=== PATIENT | female | born 1935 | race Hispanic/Latino ===

== ENCOUNTER 2019-05-23 08:48 | Emergency (ER) | payer OTHER ==
[2019-05-23] MEDS ORDERED: FOLIC ACID 5 MG/ML VIAL ONE (09:23)
[2019-05-23] MEDS ORDERED: NA CHLORIDE 0.9% 1,000 ML ONE (09:23)
--- NOTE | 2019-05-23 09:32 | RAD REPORT ---
EXAM DESCRIPTION: CT - Ct Stroke Brain Wo Cont - 05/23/2019 9:19 am CLINICAL HISTORY: Slurred speech COMPARISON: 2013 TECHNIQUE: Computed axial tomography of the head was obtained. All CT scans are performed using dose optimization technique as appropriate and may include automated exposure control or mA/KV adjustment according to patient size. FINDINGS: An intracranial bleed is not seen . The ventricles are normal in caliber. No extra-axial fluid collection is noted. Fluid within the sinuses/ mastoids is not seen. IMPRESSION: No acute intracranial abnormality is seen. If patient's symptoms persist MRI of the bra in would be recommended. Gordon Page of the emergency room was notified at 9:26 a.m. May 23, 2019
[2019-05-23 09:59] LABS: Absolute Lymphocytes (CBC) 2.1 K/uL (0.7-4.9); Basophils % 0.8 % (0-1.3); Hematocrit 39.5 % (36.0-45.0); Lymphocytes % 33.9 % (15.3-44.8); MPV 10.3 fL (7.6-11.3); RBC Red Blood Cell Count 4.46 M/uL (3.86-4.86)
[2019-05-23 10:06] LABS: Protime INR 2.83
[2019-05-23 10:20] LABS: ALT/SGPT 26 U/L (12-78); AST/SGOT 23 U/L (15-37); Albumin 3.3 g/dL (3.4-5.0); Alkaline Phosphatase 143 U/L (45-117); BUN Blood Urea Nitrogen 17 mg/dL (7-18); Bicarbonate 27 mmol/L (21-32); Bilirubin Direct < 0.1 mg/dL (0-0.2); Bilirubin Total 0.3 mg/dL (0.2-1.0); Glucose Level 259 mg/dL (74-106); Magnesium 2.3 mg/dL (1.8-2.4); NT PRO-BNP 86 pg/mL (<450); Potassium 4.4 mmol/L (3.5-5.1); Protein, Total 7.2 g/dL (6.4-8.2); Sodium Level 138 mmol/L (136-145); Troponin (Emerg Dept Use Only) < 0.02 ng/mL (0.0-0.045)
--- NOTE | 2019-05-23 10:30 | RAD REPORT ---
EXAM DESCRIPTION: MRI - Brain Wo Cont - 05/23/2019 10:13 am CLINICAL HISTORY: TIA Headache, drowsiness, CVA symptomology COMPARISON: Ct Stroke Brain Wo Cont dated 05/23/2019 TECHNIQUE: Multi-sequence, multiplanar MR imaging of the brain was performed without contrast. FINDINGS: No intracranial hemorrhage, hydrocephalus or extra-axial fluid collections.Moderate genera lized brain atrophy is seen with periventricular and deep white matter chronic microvascular ischemic changes evident. No edema or shift of midline structures. No findings to suspect brain mass. DWI is negative for acute CVA. Midline structures are normally formed. Mastoid air cells and paranasal sinuses are clear. IMPRESSION: Negative for acute CVA or other acute intracranial process.
--- NOTE | 2019-05-23 10:35 | RAD REPORT ---
EXAM DESCRIPTION: RAD - Chest Single View - 05/23/2019 10:28 am CLINICAL HISTORY: COUGH Chest pain. COMPARISON: CHEST SINGLE VIEW dated 08/31/2013; CHEST SINGLE VIEW dated 08/30/2013; CHEST SINGLE VIEW dated 01/05/2013; CHEST SINGLE VIEW dated 01/04/2013 FINDINGS: Portable technique limits examination quality. Mild interstitial pulmonary edema seen. The heart is upper limit normal in size with a tortuous thora cic aorta. No displaced fractures.Mild degenerate changes are present both shoulders. IMPRESSION: Mild CHF.
--- NOTE | 2019-05-23 10:40 | ER ---
Nurse's Notes [facility] Name: Kate Cruz Age: 83 yrs Sex: Female : 1935 Arrival Date: 05/23/2019 Time: 08:51 Bed 4 Private MD: Ilir Dumont T Diagnosis: Weakness;Type 1 diabetes mellitus;Alzheimer's disease Presentation: 05/23 09:07 Presenting complaint: [facility] staff member states that 1 hour ago while eating ss breakfast they noticed that patient was eating with her L hand rather than her right hand, leaning to her side and her speech seemed more slurred than usual. VAN scoring negative. Transition of care: patient was not received from another setting of care. Onset of symptoms was May 22, 2019 at 21:00. Risk Assessment: Do you want to hurt yourself or someone else? Patient reports no desire to harm self or others. Initial Sepsis Screen: Does the patient meet any 2 criteria? No. Patient's initial sepsis screen is negative. Does the patient have a suspected source of infection? No. Patient's initial sepsis screen is negative. Care prior to arrival: None. 09:07 Method Of Arrival: Wheelchair ss 09:07 Acuity: CHAZ 2 ss Triage Assessment: 09:12 General: Appears in no apparent distress. Behavior is calm, cooperative. Pain: Denies hb pain. EENT: No signs and/or symptoms were reported regarding the EENT system. Neuro: Level of Consciousness is awake, alert, obeys commands, Oriented to person, place, situation. Cardiovascular: Heart tones S1 S2 present Capillary refill < 3 seconds Patient's skin is warm and dry. Respiratory: Airway is patent Respiratory effort is even, unlabored, Respiratory pattern is regular, symmetrical, Breath sounds are clear bilaterally. GI: No signs and/or symptoms were reported involving the gastrointestinal system. : No signs and/or symptoms were reported regarding the genitourinary system. Derm: Skin is pink, warm \T\ dry. Musculoskeletal: No signs and/or symptoms reported regarding the musculoskeletal system. Historical: - Allergies: 09:13 No Known Allergies; ss - PMHx: 09:13 Diabetes - IDDM; dysphagia; Alzheimers; ss - Immunization history:: Adult Immunizations up to date. - Coronavirus screen:: The patient has NOT traveled to [place] in the past 14 days. Proceed with normal triage process as indicated. - Social history:: Smoking status: Patient denies any tobacco usage or history of. - Family history:: not pertinent. - Ebola Screening: : Patient denies exposure to infectious person Patient denies travel to an Ebola-affected area in the 21 days before illness onset. Screenin:22 Abuse screen: Denies threats or abuse. Denies injuries from another. Nutritional hb screening: No deficits noted. Tuberculosis screening: No symptoms or risk factors identified. Fall Risk Total Banuelos Fall Scale indicates Low Risk Score (25-44 pts). Fall prevention measures have been instituted. Side Rails Up X 2 Frequent Obs/Assesments occuring Family Present and informed to notify staff if they need to leave bedside As available Patient and Family Educated on Fall Prevention Program and strategies. 10:22 Patient has been NPO before screening. The patient is alert, able to follow commands. hb The patient does not exhibit slurred or garbled speech The patient is not exhibiting difficulty speaking. The patient does not exhibit difficulty understanding words. The patient is able to swallow own secretions with no drooling or need for suction. Patient tolerated one teaspoon of water. No drooling, immediate coughing, gurgling, or clearing of the throat was noted. The patient tolerated 90mL of water. No drooling, immediate coughing, gurgling, or clearing of the throat was noted. The patient passed the bedside swallow screening. Oral medications may be given as ordered. Contact Physician for further diet orders. Assessment: 09:13 General: See triage assessment . hb 09:26 Reassessment: Pt to CT. hb 09:52 Reassessment: Pt to MRI via wheelchair. hb 10:26 Reassessment: Patient appears in no apparent distress at this time. No changes from hb previously documented assessment. Patient and/or family updated on plan of care and expected duration. Pain level reassessed. 10:49 Reassessment: Pt agitated, punching, kicking, and pinching staff, attempting to pull hb out IV, unable to redirect or calm. Dr. Guerra notified, Ativan 1mg IVP administered as ordered. 11:30 Reassessment: Patient appears in no apparent distress at this time. Pt calm, denies hb pain. Family at bedside. 12:43 Reassessment: Patient appears in no apparent distress at this time. No changes from tw2 previously documented assessment. Patient and/or family updated on plan of care and expected duration. Pain level reassessed. Vital Signs: 09:00 BP 138 / 56; Pulse 84; Resp 15; Temp 98.1; Pulse Ox 99% ; Pain 0/10; hb 10:10 BP 148 / 68; Pulse 88; Resp 17; Pulse Ox 99% on R/A; Pain 0/10; hb 11:00 BP 138 / 70; Pulse 81; Resp 14; Pulse Ox 99% on R/A; hb 12:43 BP 122 / 82; Pulse 81; Resp 17; Pulse Ox 99% on R/A; tw2 NIH Stroke Scale Scores: 10:30 NIHSS Score: 0 yenny ED Course: 08:51 Patient arrived in ED. ag5 08:52 Ilir Dumont MD is Private Physician. ag5 09:08 Gordon Guerra MD is Attending Physician. yenny 09:11 EKG done, by polysomnographic technician. reviewed by Gordon Guerra MD. at1 09:12 Triage completed. ss 09:13 Arm band placed on right wrist. ss 09:16 Jacqueline Huizar, RN is Primary Nurse. hb 09:41 Missed attempt(s): 22 gauge in right antecubital area. mh5 09:41 Patient has correct armband on for positive identification. Placed in gown. Bed in low mh5 position. Call light in reach. Side rails up X2. Adult w/ patient. Warm blanket given. office correspondent on. Pulse ox on. NIBP on. 09:45 Missed attempt(s): 22 gauge in right hand. Bleeding controlled, band aid applied, hb catheter tip intact. 09:50 Inserted saline lock: 22 gauge in left antecubital area, using aseptic technique. Blood hb collected. 10:22 X-ray(s) taken. sv 10:37 Ilir Dumont MD is Referral Physician. yenny 10:37 Stevie Boland MD is Referral Physician. yenny 10:49 Urine Culture Sent. hb 11:01 Urine Dipstick--Ancillary (enter results) Sent. hb 11:05 Urine collected: straight cath specimen, clear. mh5 11:48 US Carotid Artery Bilateral In Process Unspecified. EDMS 12:42 No provider procedures requiring assistance completed. IV discontinued, intact, tw2 bleeding controlled, No redness/swelling at site. Pressure dressing applied. Administered Medications: 10:10 Drug: NS 0.9% 1000 ml Route: IV; Rate: 1 bolus; Site: left antecubital; hb 10:10 Drug: foLIC Acid 1 mg Route: IVPB; Site: left antecubital; hb 10:48 Drug: Ativan 1 mg Route: IVP; Site: left antecubital; hb 11:25 Follow up: Response: No adverse reaction; Anxiety decreased hb Outcome: 10:38 Discharge ordered by MD. yenny 12:42 Discharged to home ambulatory, via wheelchair, with family. tw2 12:42 Condition: stable 12:42 Discharge instructions given to patient, family, Instructed on discharge instructions, follow up and referral plans. medication usage, Demonstrated understanding of instructions, follow-up care, medications, Prescriptions given X 1. 12:44 Patient left the ED. tw2 NIH Stroke Scale - NIH Stroke Score Date: 05/23/2019 Time: 10:30 Total Score = 0 1a. Level of Consciousness (LOC) - 0(Alert) 1b. Level of Consciousness (LOC) (Year \T\ Age) - 0(Both) 1c. LOC Commands (Open \T\ Closes Eyes/Plant Protection Officer) - 0(Both) 2. Best Gaze (Lateral Gaze Paresis) - 0(Normal) 3. Visual Field Loss - 0(No visual loss) 4. Facial Palsy - 0(Normal) 5a. Left Arm: Motor (10-second hold) - 0(No drift) 5b. Right Arm: Motor (10-second hold) - 0(No drift) 6a. Left Leg: Motor (5-second hold - always test supine) - 0(No drift) 6b. Right Leg: Motor (5-second hold - always test supine) - 0(No drift) 7. Limb Ataxia (finger/nose \T\ heel/castro - test with eyes open) - 0(Absent) 8. Sensory Loss (pinprick arms/legs/face) - 0(Normal) 9. Best Language: Aphasia (description/naming/reading) - 0(No aphasia) 10. Dysarthria (speech clarity - read or repeat words) - 0(Normal) 11. Extinction and Inattention (visual/tactile/auditory/spatial/personal) - 0(No abnormality) Initials: yenny Signatures: Dispatcher [employer] EDMS Maria Ines Black, RN RN Gordon Luna MD MD cha Smirch, Shelby, RN RN ss Basilia Miranda, photo mask inspector EKG Tat1 Jacqueline Huizar RN RN Lita Jean RN RN tw2 Karey Phillips 5 Sarah Edmondson ag5 Corrections: (The following items were deleted from the chart) 10: 10:25 Urine Culture+BA.LAB.BRZ drawn and sent. EDMS 09:00 BP 138 / 56; Pulse 84bpm; Resp 15bpm; Pulse Ox 99%; sv hb
--- NOTE | 2019-05-23 10:40 | EDPHYS ---
Physician Documentation [facility] Name: Kate Cruz Age: 83 yrs Sex: Female : 1935 Arrival Date: 05/23/2019 Time: 08:51 Bed 4 Private MD: lIir Dumont T ED Physician Gordon Guerra HPI: 05/23 10:30 This 83 yrs old Female presents to ER via Wheelchair with complaints of Right [facility] Side Numbness. 10:30 The patient's problem is reported as paresthesias, weakness, in the right upper [facility] extremity. Onset: The symptoms/episode began/occurred just prior to arrival. Duration: This was a single incident. Context: the episode(s) was witnessed, by the group home staff. The symptoms are alleviated by nothing. The symptoms are aggravated by nothing. eating with left hand, speech slurred. The patient presents with unk, patient denies all complaints. Associated signs and symptoms: The patient has no apparent associated signs or symptoms. Historical: - Allergies: 09:13 No Known Allergies; ss - PMHx: 09:13 Diabetes - IDDM; dysphagia; Alzheimers; ss - Immunization history:: Adult Immunizations up to date. - Coronavirus screen:: The patient has NOT traveled to [place] in the past 14 days. Proceed with normal triage process as indicated. - Social history:: Smoking status: Patient denies any tobacco usage or history of. - Family history:: not pertinent. - Ebola Screening: : Patient denies exposure to infectious person Patient denies travel to an Ebola-affected area in the 21 days before illness onset. ROS: 10:30 Constitutional: Negative for fever, chills, and weight loss, Eyes: Negative for injury, yenny pain, redness, and discharge, ENT: Negative for injury, pain, and discharge, Neck: Negative for injury, pain, and swelling, Cardiovascular: Negative for chest pain, palpitations, and edema, Respiratory: Negative for shortness of breath, cough, wheezing, and pleuritic chest pain, Abdomen/GI: Negative for abdominal pain, nausea, vomiting, diarrhea, and constipation, Back: Negative for injury and pain, : Negative for injury, bleeding, discharge, and swelling, MS/Extremity: Negative for injury and deformity, Skin: Negative for injury, rash, and discoloration, Psych: Negative for depression, anxiety, suicide ideation, homicidal ideation, and hallucinations, Allergy/Immunology: Negative for hives, rash, and allergies, Endocrine: Negative for neck swelling, polydipsia, polyuria, polyphagia, and marked weight changes. 10:30 Neuro: Positive for numbness, tingling, of the right arm. Exam: 10:30 Radiologist reports: see report, nad, no blood yenny 10:30 Constitutional: This is a well developed, well nourished patient who is awake, alert, and in no acute distress. Head/Face: Normocephalic, atraumatic. Eyes: Pupils equal round and reactive to light, extra-ocular motions intact. Lids and lashes normal. Conjunctiva and sclera are non-icteric and not injected. Cornea within normal limits. Periorbital areas with no swelling, redness, or edema. ENT: Nares patent. No nasal discharge, no septal abnormalities noted. Tympanic membranes are normal and external auditory canals are clear. Oropharynx with no redness, swelling, or masses, exudates, or evidence of obstruction, uvula midline. Mucous membranes moist. Neck: Trachea midline, no thyromegaly or masses palpated, and no cervical lymphadenopathy. Supple, full range of motion without nuchal rigidity, or vertebral point tenderness. No Meningismus. Chest/axilla: Normal chest wall appearance and motion. Nontender with no deformity. No lesions are appreciated. Cardiovascular: Regular rate and rhythm with a normal S1 and S2. No gallops, murmurs, or rubs. Normal PMI, no JVD. No pulse deficits. Respiratory: Lungs have equal breath sounds bilaterally, clear to auscultation and percussion. No rales, rhonchi or wheezes noted. No increased work of breathing, no retractions or nasal flaring. Abdomen/GI: Soft, non-tender, with normal bowel sounds. No distension or tympany. No guarding or rebound. No evidence of tenderness throughout. Back: No spinal tenderness. No costovertebral tenderness. Full range of motion. Female : Normal external genitalia. Skin: Warm, dry with normal turgor. Normal color with no rashes, no lesions, and no evidence of cellulitis. MS/ Extremity: Pulses equal, no cyanosis. Neurovascular intact. Full, normal range of motion. Neuro: Awake and alert, GCS 15, oriented to person, place, time, and situation. Cranial nerves II-XII grossly intact. Motor strength 5/5 in all extremities. Sensory grossly intact. Cerebellar exam normal. Normal gait. Psych: Awake, alert, with orientation to person, place and time. Behavior, mood, and affect are within normal limits. Vital Signs: 09:00 BP 138 / 56; Pulse 84; Resp 15; Temp 98.1; Pulse Ox 99% ; Pain 0/10; hb 10:10 BP 148 / 68; Pulse 88; Resp 17; Pulse Ox 99% on R/A; Pain 0/10; hb 11:00 BP 138 / 70; Pulse 81; Resp 14; Pulse Ox 99% on R/A; hb 12:43 BP 122 / 82; Pulse 81; Resp 17; Pulse Ox 99% on R/A; tw2 NIH Stroke Scale Scores: 10:30 NIHSS Score: 0 yenny MDM: 09:09 Patient medically screened. [facility] 10:34 Data reviewed: vital signs, nurses notes, lab test result(s), EKG, radiologic studies, [facility] CT scan, MRI, plain films. 05/23 09:09 Order name: Magnesium [facility] 05/23 09:09 Order name: Basic Metabolic Panel [facility] 05/23 09:09 Order name: CBC with Diff [facility] 05/23 09:09 Order name: Protime (+inr) [facility] 05/23 09:09 Order name: Ptt, Activated [facility] 05/23 09:09 Order name: LFT's [facility] 05/23 09:09 Order name: NT PRO-BNP [facility] 05/23 09:09 Order name: Troponin (emerg Dept Use Only) [facility] 05/23 09:11 Order name: Urine Culture [facility] 05/23 10:01 Order name: CBC with Automated Diff; Complete Time: 10:17 EDNM 05/23 10:08 Order name: Protime (+INR); Complete Time: 10:17 EDNM 05/23 10:08 Order name: PTT, Activated Partial Thromb; Complete Time: 10:17 EDNM 05/23 10:22 Order name: Basic Metabolic Panel; Complete Time: 10:29 EDNM 05/23 10:22 Order name: Liver (Hepatic) Function; Complete Time: 10:29 EDNM 05/23 09:07 Order name: CT Stroke Brain w/o Contrast 05/23 09:09 Order name: Stroke CXR 1 View [facility] 05/23 09:10 Order name: MRI Stroke Protocol [facility] 05/23 10:22 Order name: Troponin (Emerg Dept Use Only); Complete Time: 10:29 EDMS 05/23 10:22 Order name: NT PRO-BNP; Complete Time: 10:29 EDNM 05/23 10:22 Order name: Magnesium; Complete Time: 10:29 EDNM 05/23 10:36 Order name: US Carotid Artery Bilateral [facility] 05/23 10:48 Order name: Ct Stroke Brain Wo Cont; Complete Time: 11:41 EDNM 05/23 10:50 Order name: Urine Dipstick--Ancillary (enter results) 05/23 10:54 Order name: Urine Dipstick-Ancillary; Complete Time: 11:41 EDNM 05/23 11:26 Order name: Brain Wo Cont; Complete Time: 11:41 EDNM 05/23 11:39 Order name: RAD; Complete Time: 11:41 EDNM 05/23 09:09 Order name: EKG; Complete Time: 09:34 [facility] 05/23 09:09 Order name: Accucheck; Complete Time: 11:01 [facility] 05/23 09:09 Order name: Cardiac monitoring; Complete Time: 11:02 [facility] 05/23 09:09 Order name: EKG - Nurse/Tech; Complete Time: 11:01 [facility] 05/23 09:09 Order name: IV Saline Lock; Complete Time: 11:02 [facility] 05/23 09:09 Order name: Labs collected and sent; Complete Time: 11:02 [facility] 05/23 09:09 Order name: NPO; Complete Time: 11:02 [facility] 05/23 09:09 Order name: O2 Per Protocol; Complete Time: 11:02 [facility] 05/23 09:09 Order name: O2 Sat Monitoring; Complete Time: 11:02 [facility] 05/23 09:09 Order name: Stroke Swallow Screen; Complete Time: 11:02 [facility] 05/23 09:11 Order name: Urine Dipstick-Ancillary (obtain specimen); Complete Time: 10:48 [facility] Administered Medications: 10:10 Drug: NS 0.9% 1000 ml Route: IV; Rate: 1 bolus; Site: left antecubital; hb 10:10 Drug: foLIC Acid 1 mg Route: IVPB; Site: left antecubital; hb 10:48 Drug: Ativan 1 mg Route: IVP; Site: left antecubital; hb 11:25 Follow up: Response: No adverse reaction; Anxiety decreased hb Disposition: 05/23/19 10:38 Discharged to Home. Impression: Weakness, Type 1 diabetes mellitus, Alzheimer's disease. - Condition is Stable. - Discharge Instructions: Type 1 Diabetes Mellitus, Diagnosis, Adult, Weakness, Weakness, [id number]. - Prescriptions for Folic Acid 1 mg Oral Tablet - take 1 tablet by ORAL route once daily; 30 tablet. - Medication Reconciliation Form, Thank You Letter, Antibiotic Education, Prescription Opioid Use form. - Follow up: Ilir Dumont MD; When: 2 - 3 days; Reason: Recheck today's complaints, Continuance of care, Re-evaluation by your physician. Follow up: Stevie Boland MD; When: 2 - 3 days; Reason: Recheck today's complaints, Re-evaluation by your physician. - Problem is new. - Symptoms have improved. NIH Stroke Scale - NIH Stroke Score Date: 05/23/2019 Time: 10:30 Total Score = 0 1a. Level of Consciousness (LOC) - 0(Alert) 1b. Level of Consciousness (LOC) (Year \T\ Age) - 0(Both) 1c. LOC Commands (Open \T\ Closes Eyes/Operations Support Representative) - 0(Both) 2. Best Gaze (Lateral Gaze Paresis) - 0(Normal) 3. Visual Field Loss - 0(No visual loss) 4. Facial Palsy - 0(Normal) 5a. Left Arm: Motor (10-second hold) - 0(No drift) 5b. Right Arm: Motor (10-second hold) - 0(No drift) 6a. Left Leg: Motor (5-second hold - always test supine) - 0(No drift) 6b. Right Leg: Motor (5-second hold - always test supine) - 0(No drift) 7. Limb Ataxia (finger/nose \T\ heel/castro - test with eyes open) - 0(Absent) 8. Sensory Loss (pinprick arms/legs/face) - 0(Normal) 9. Best Language: Aphasia (description/naming/reading) - 0(No aphasia) 10. Dysarthria (speech clarity - read or repeat words) - 0(Normal) 11. Extinction and Inattention (visual/tactile/auditory/spatial/personal) - 0(No abnormality) Initials: yenny Signatures: Dispatcher [employer] [facility] Gordon Guerra MD MD cha Smirch, Shelby, RN RN Jacqueline Huizar, HALINA RN Lita Poon RN RN tw2 Corrections: (The following items were deleted from the chart) 10:27 09:35 Urine Culture+BA.LAB.BRZ ordered. [facility] 12:44 10:38 05/23/2019 10:38 Discharged to Home. Impression: Weakness; Type 1 tw2 diabetes mellitus; Alzheimer's disease. Condition is Stable. Forms are Medication Reconciliation Form, Thank You Letter, Antibiotic Education, Prescription Opioid Use. Follow up: Ilir Dumont; When: 2 - 3 days; Reason: Recheck today's complaints, Continuance of care, Re-evaluation by your physician. Follow up: Stevie Boland; When: 2 - 3 days; Reason: Recheck today's complaints, Re-evaluation by your physician. Problem is new. Symptoms have improved. yenny
[2019-05-23] MEDS ORDERED: LORazepam 2 MG/ML VIAL ONE (10:48)
[2019-05-23 10:53] LABS: Urine Blood NEGATIVE (NEG); Urine Glucose 2+ (NEG); Urine Protein TRACE (NEG); Urine Specific Gravity 1.015 (1.005-1.030); Urine pH 5.5 (5.0-7.0)
--- NOTE | 2019-05-23 11:23 | EKG ---
Test Date: 2019-05-23 Test Time: 09:05:18 [employer] Player: VERONA MEASUREMENT RESULTS: Intervals: Rate: 79 RI: 146 QRSD: 80 QT: 402 QTc: 460 [place]: P: 34 RI: 146 QRS: -18 T: 76 INTERPRETIVE STATEMENTS: Normal sinus rhythm Low voltage QRS Borderline ECG Compared to ECG 08/30/2013 13:18:06 T-wave abnormality no longer present Electronically Signed On 05-23-19 11:22:35 [employer] CONSULTANT by Wilson Reilly
--- NOTE | 2019-05-23 11:57 | RAD REPORT ---
EXAM DESCRIPTION: - CP - 05/23/2019 11:43 am CLINICAL HISTORY: DIZZINESS Headache, drowsiness, CVA symptomology. COMPARISON: CT HEAD CSPINE MPR WO CONTRAST dated 10/04/2013 TECHNIQUE: Real-time sonographic evaluation of both carotid systems was performed. Doppler interroga tion was performed with waveform tracing bilaterally. FINDINGS: Normal high resistance waveforms are noted in both external carotid arteries. The common c arotid arteries and internal carotid arteries show normal low resistance waveforms. Bilateral intimal thickening with mild mixed plaque at the level of the right carotid bulb. Moderate hard plaque with luminal narrowing estimated less than 50% based on NASCET criteria seen left carotid bulb. . Peak systolic and end diastolic velocity values and the ICA/CCA ratios are in the non-hemody namically significant range. Antegrade flow seen in both vertebral arteries. IMPRESSION: Mild to moderate carotid bulb plaquing is seen, slightly worse on the left. No evidence of a hemodynamically significant stenosis.
[2019-05-23 12:59] VITALS: TEMP 98.1; O2SAT 99
[2019-05-23 13:03] VITALS: BP 122/82
== END 2019-05-23 12:44 | disposition home or self-care (01) ==
LOC: ER 08:48
DX: R53.1 Weakness (principal); E10.9 Type 1 diabetes mellitus without complications; G30.9 Alzheimer's disease, unspecified
CPT/HCPCS: 93005; 87088; 85025; 87086; 80048; 36415; 83735; 85610; 80076; 85730; 81003; 84484; 83880; 70450; 71045; 93880; 70551; 96375; 96374; 99285; J7030

== ENCOUNTER 2020-04-16 23:42 | Emergency (ER) | payer OTHER ==
[2020-04-17] MEDS ORDERED: D50W 50 ML IV ONE (00:15)
[2020-04-17 00:47] LABS: Absolute Lymphocytes (CBC) 1.2 K/uL (0.7-4.9); Basophils % 0.3 % (0-1.3); Hematocrit 42.2 % (36.0-45.0); Lymphocytes % 22.2 % (15.3-44.8); MPV 9.7 fL (7.6-11.3); RBC Red Blood Cell Count 4.89 M/uL (3.86-4.86)
[2020-04-17 00:53] LABS: Protime INR 1.26
[2020-04-17 01:00] LABS: ALT/SGPT 45 U/L (12-78); AST/SGOT 63 U/L (15-37); Alkaline Phosphatase 128 U/L (45-117); Amylase 61 U/L (25-115); BUN Blood Urea Nitrogen 22 mg/dL (7-18); Bicarbonate 25 mmol/L (21-32); Bilirubin Direct 0.2 mg/dL (0-0.2); Bilirubin Total 0.7 mg/dL (0.2-1.0); CKMB Creatine Kinase MB 1.6 ng/mL (0.3-3.6); Creatine Phosphokinase 130 U/L (26-192); Glucose Level 61 mg/dL (74-106); Lipase 178 U/L (73-393); Potassium 4.2 mmol/L (3.5-5.1); Protein, Total 8.3 g/dL (6.4-8.2); Sodium Level 144 mmol/L (136-145); Troponin (Emerg Dept Use Only) < 0.02 ng/mL (0.0-0.045)
[2020-04-17 01:40] LABS: Blood Morphology Comment NOT SEEN (NOT SEEN); Platelet Estimate ADEQ
[2020-04-17 01:54] LABS: Urine Blood 1+ (NEG); Urine Glucose TRACE (NEG); Urine Protein 2+ (NEG); Urine pH 5.5 (5.0-7.0)
[2020-04-17] MEDS ORDERED: NA CHLORIDE 0.9% 1,000 ML ONE (01:57)
[2020-04-17 02:06] LABS: Urine Bacteria LOADED /HPF (<20); Urine RBC NONE SEEN /HPF (NONE SEEN); Urine Urothelial Cells <5 /HPF (NONE SEEN)
--- NOTE | 2020-04-17 05:20 | EDPHYS ---
Physician Documentation [facility] Name: Kate Cruz Age: 84 yrs Sex: Female : 1935 Arrival Date: 04/16/2020 Time: 23:44 Bed 3 Private MD: Ilir Dumont T ED Physician Danny Marcelo HPI: 04/17 01:19 This 84 yrs old Female presents to ER via EMS with complaints of Low Blood pkl Sugar, Altered Mental Status. 01:19 The patient presents with decreased mental status. Onset: The symptoms/episode pkl began/occurred just prior to arrival. Possible causes: low blood sugar, refused to eat all day. Historical: - Allergies: 04/16 23:50 No Known Allergies; rr5 - PMHx: 23:50 Alzheimers; Diabetes - IDDM; DYSPHAGIA; Dementia; rr5 - Immunization history:: Adult Immunizations unknown. - Social history:: Smoking status: unknown. ROS: 04/17 01:19 Eyes: Negative for injury, pain, redness, and discharge, ENT: Negative for injury, pkl pain, and discharge, Neck: Negative for injury, pain, and swelling, Cardiovascular: Negative for chest pain, palpitations, and edema, Respiratory: Negative for shortness of breath, cough, wheezing, and pleuritic chest pain, Abdomen/GI: Negative for abdominal pain, nausea, vomiting, diarrhea, and constipation, Back: Negative for injury and pain, : Negative for injury, bleeding, discharge, and swelling, MS/Extremity: Negative for injury and deformity, Skin: Negative for injury, rash, and discoloration. Neuro: Positive for altered mental status. Exam: 01:19 Head/Face: Normocephalic, atraumatic. Eyes: Pupils equal round and reactive to light, pkl extra-ocular motions intact. Lids and lashes normal. Conjunctiva and sclera are non-icteric and not injected. Cornea within normal limits. Periorbital areas with no swelling, redness, or edema. ENT: Nares patent. No nasal discharge, no septal abnormalities noted. Tympanic membranes are normal and external auditory canals are clear. Oropharynx with no redness, swelling, or masses, exudates, or evidence of obstruction, uvula midline. Mucous membranes moist. Neck: Trachea midline, no thyromegaly or masses palpated, and no cervical lymphadenopathy. Supple, full range of motion without nuchal rigidity, or vertebral point tenderness. No Meningismus. Chest/axilla: Normal chest wall appearance and motion. Nontender with no deformity. No lesions are appreciated. Cardiovascular: Regular rate and rhythm with a normal S1 and S2. No gallops, murmurs, or rubs. Normal PMI, no JVD. No pulse deficits. Respiratory: Lungs have equal breath sounds bilaterally, clear to auscultation and percussion. No rales, rhonchi or wheezes noted. No increased work of breathing, no retractions or nasal flaring. Abdomen/GI: Soft, non-tender, with normal bowel sounds. No distension or tympany. No guarding or rebound. No evidence of tenderness throughout. Back: No spinal tenderness. No costovertebral tenderness. Full range of motion. Skin: Warm, dry with normal turgor. Normal color with no rashes, no lesions, and no evidence of cellulitis. MS/ Extremity: Pulses equal, no cyanosis. Neurovascular intact. Full, normal range of motion. Neuro: Awake and alert, GCS 15, oriented to person, place, time, and situation. Cranial nerves II-XII grossly intact. Motor strength 5/5 in all extremities. Sensory grossly intact. Cerebellar exam normal. Normal gait. Vital Signs: 04/16 23:50 BP 104 / 57; Pulse 71; Resp 16; Temp 97.7; Pulse Ox 95% ; rr5 04/17 00:35 Weight 55 kg; rr5 01:00 BP 115 / 62; Pulse 62; Resp 15; Pulse Ox 98% ; rr5 01:58 BP 110 / 62; Pulse 70; Resp 19; Pulse Ox 99% ; rr5 04:38 BP 102 / 66; Pulse 70; Resp 17; Pulse Ox 100% on R/A; sg 05:30 BP 110 / 70; Pulse 79; Resp 16; Pulse Ox 99% ; rr5 06:29 BP 113 / 65; Pulse 70; Resp 15; Pulse Ox 98% ; rr5 MDM: 00:06 Patient medically screened. pkl 05:16 Data reviewed: vital signs, nurses notes, lab test result(s), EKG. ED course: Patient pkl doing better. Blood sugar stabilized.. 04/17 00:00 Order name: Glucose, Ancillary Testing; Complete Time: 01:18 EDMS 04/17 00:15 Order name: Amylase, Serum; Complete Time: 01:18 rr5 04/17 00:15 Order name: Basic Metabolic Panel; Complete Time: :18 rr5 04/17 00:15 Order name: Blood Culture Adult (2) rr5 04/17 00:15 Order name: CBC with Diff; Complete Time: 05:13 rr5 04/17 00:15 Order name: Ckmb; Complete Time: :18 rr5 04/17 00:15 Order name: CPK; Complete Time: :18 rr5 04/17 00:15 Order name: Lactate; Complete Time: :18 rr5 04/17 00:15 Order name: LFT's; Complete Time: :18 rr5 04/17 00:15 Order name: Lipase; Complete Time: :18 rr5 04/17 00:15 Order name: Procalcitonin; Complete Time: 05:13 rr5 04/17 00:15 Order name: Protime (+inr); Complete Time: :18 rr5 04/17 00:15 Order name: Ptt, Activated; Complete Time: :18 rr5 04/17 00:15 Order name: Troponin (emerg Dept Use Only); Complete Time: :18 rr5 04/17 00:15 Order name: Urine Microscopic Only; Complete Time: 05:13 rr5 04/17 00:15 Order name: Chest Single View XRAY; Complete Time: 20:03 rr5 04/17 00:35 Order name: CT Head Brain wo Cont; Complete Time: 20:03 rr5 04/17 00:55 Order name: Manual Differential; Complete Time: 05:13 EDMS 04/17 01:28 Order name: Glucose, Ancillary Testing; Complete Time: 05:13 EDMS 04/17 01:45 Order name: Urine Dipstick--Ancillary (enter results); Complete Time: 05:13 mw2 04/17 02:08 Order name: Urine Culture EDMS 04/17 03:57 Order name: Glucose, Ancillary Testing; Complete Time: 05:13 EDMS 04/17 05:42 Order name: Glucose, Ancillary Testing; Complete Time: 20:03 EDMS 04/17 06:38 Order name: Glucose, Ancillary Testing; Complete Time: 20:03 EDMS 04/17 00:15 Order name: Accucheck; Complete Time: 00:36 rr5 04/17 00:15 Order name: Cardiac monitoring; Complete Time: 00:36 rr5 04/17 00:15 Order name: EKG - Nurse/Tech; Complete Time: 00:51 rr5 04/17 00:15 Order name: IV Saline Lock - Large Bore; Complete Time: 00:36 rr5 04/17 00:15 Order name: Labs collected and sent; Complete Time: 00:36 rr5 04/17 00:15 Order name: O2 Per Protocol; Complete Time: 00:36 rr5 04/17 00:15 Order name: O2 Sat Monitoring; Complete Time: 00:36 rr5 04/17 00:15 Order name: Urine Dipstick-Ancillary (obtain specimen); Complete Time: 02:00 rr5 04/17 01:25 Order name: Accucheck: q hourly; Complete Time: 01:59 pkl 04/17 01:59 Order name: Straight Cath - Urine; Complete Time: 01:59 rr5 04/17 08:14 Order name: EKG Electrocardiogram EDMS Administered Medications: Discontinued: NS 0.9% 1000 ml IV at 125 ml/hr continuous 00:10 Drug: D50W 25 ml Route: IVP; Site: right antecubital; rr5 01:00 Follow up: Response: No adverse reaction; Blood sugar is elevated rr5 01:40 Drug: NS 0.9% 1000 ml Route: IV; Rate: 125 ml/hr; Site: right antecubital; rr5 06:00 Follow up: Response: No adverse reaction; IV Status: Order to discontinue infusion rr5 02:00 Not Given (Other Intervention Used): NS 0.9% (30 ml/kg) 30 ml/kg IV at bolus once; rr5 Sepsis Protocol 05:50 Drug: Rocephin 1 grams Route: IV; Rate: bolus; Site: right antecubital; rr5 06:30 Follow up: Response: No adverse reaction; IV Status: Completed infusion; IV Intake: [id number] 05:50 Drug: D50W 25 ml Route: IVP; Site: right antecubital; rr5 06:30 Follow up: Response: No adverse reaction; Blood sugar is elevated rr5 05:55 Not Given (Patient Refused): Cipro 500 mg PO once rr5 Disposition: 04/17/20 05:19 Discharged to Home. Impression: Hypoglycemia. Urinary tract infection. - Condition is Stable. - Prescriptions for Cipro 500 mg Oral Tablet - take 1 tablet by ORAL route every 12 hours for 7 days; 14 tablet. - Medication Reconciliation Form, Thank You Letter, Antibiotic Education, Prescription Opioid Use form. - Follow up: Private Physician; When: 2 - 3 days; Reason: Re-evaluation by your physician. - Problem is new. - Symptoms have improved. Signatures: Dispatcher [employer] EDMS Danny Marcelo MD MD pkl Odalys Laguna, RN RN iw Michael Sroto RN RN rr5 Corrections: (The following items were deleted from the chart) 08:26 05:19 04/17/2020 05:19 Discharged to Home. Impression: Hypoglycemia. Urinary tract iw infection. Condition is Stable. Forms are Medication Reconciliation Form, Thank You Letter, Antibiotic Education, Prescription Opioid Use. Follow up: Private Physician; When: 2 - 3 days; Reason: Re-evaluation by your physician. Problem is new. Symptoms have improved. pkl
--- NOTE | 2020-04-17 05:20 | ER ---
Nurse's Notes [facility] Name: Kate Cruz Age: 84 yrs Sex: Female : 1935 Arrival Date: 04/16/2020 Time: 23:44 Bed 3 Private MD: Ilir Dumont T Diagnosis: Hypoglycemia. Urinary tract infection Presentation: 04/16 23:50 Chief complaint: EMS states: came from [facility]. the staff reported rr5 the patient is hypoglycemic refused to eat all day, refused anything. BS checked 2 hours ago 57 mg/Dl. for us the sugar is 67 mg/Dl, AO X1 . vitally stable. 23:50 Coronavirus screen: Client denies travel out of the [place] in the last 14 days. At this rr5 time, the client does not indicate any symptoms associated with coronavirus-19. Ebola Screen: Patient negative for fever greater than or equal to 101.5 degrees Fahrenheit, and additional compatible Ebola Virus Disease symptoms Patient denies exposure to infectious person. Patient denies travel to an Ebola-affected area in the 21 days before illness onset. Initial Sepsis Screen: Does the patient meet any 2 criteria? No. Patient's initial sepsis screen is negative. Does the patient have a suspected source of infection? No. Patient's initial sepsis screen is negative. Risk Assessment: Do you want to hurt yourself or someone else? Patient reports no desire to harm self or others. Onset of symptoms was April 16, 2020. 23:50 Method Of Arrival: EMS: [facility] rr5 23:50 Acuity: CHAZ 2 rr5 Historical: - Allergies: 23:50 No Known Allergies; rr5 - PMHx: 23:50 Alzheimers; Diabetes - IDDM; DYSPHAGIA; Dementia; rr5 - Immunization history:: Adult Immunizations unknown. - Social history:: Smoking status: unknown. Screenin/12 00:00 Abuse screen: Denies threats or abuse. Denies injuries from another. Nutritional rr5 screening: No deficits noted. Tuberculosis screening: No symptoms or risk factors identified. Fall Risk Secondary diagnosis (15 points) dementia, IV access (20 points). Gait- Impaired (20 pts.). Mental Status- Overestimates/Forgets Limitations (15 pts.). Total Banuelos Fall Scale indicates High Risk Score (45 or more points). Fall prevention measures have been instituted. Side Rails Up X 2 Placed Close to Nursing Station 1:1 Attendant Assigned Frequent Obs/Assessments Occuring As available patient and family educated on Fall Prevention Program and Strategies. Assessment: 04/16 23:50 General: Appears in no apparent distress. Behavior is quiet, uncooperative. rr5 23:50 Pain: Unable to use pain scale. Patient appears withdrawn. Neuro: Level of rr5 Consciousness is awake, confused, Oriented to none. Cardiovascular: Capillary refill < 3 seconds Patient's skin is warm and dry. Respiratory: Airway is patent Respiratory effort is even, unlabored, Respiratory pattern is regular, symmetrical. GI: No signs and/or symptoms were reported involving the gastrointestinal system. : No signs and/or symptoms were reported regarding the genitourinary system. EENT: No signs and/or symptoms were reported regarding the EENT system. Derm: Skin is fragile, is thin, Skin temperature is warm. Musculoskeletal: Capillary refill < 3 seconds. 04/17 00:50 Reassessment: Patient appears in no apparent distress at this time. No changes from rr5 previously documented assessment. 01:12 Reassessment: [phone] sandra son updated for the plan of care. rr5 01:15 Reassessment: ED provider aware for the repeat blood sugar 110mg/dl. rr5 01:20 Reassessment: patient refused for straight catheter. ED provider aware. rr5 01:50 Reassessment: patient uncooperative, aggressive, AOx 1, confused. explained the rr5 procedure of straight catheter., specimen obtained with the help of madan lai RN and [facility] tech. 02:19 Reassessment: Patient appears in no apparent distress at this time. side lying position rr5 eyes closed breathing spontaneously at room air. 03:41 Reassessment: joseph daughter updated for the plan of care [phone]. rr5 05:40 Reassessment: Patient appears in no apparent distress at this time. ED provider aware rr5 for the Blood sugar of 71mg/Dl with order made and carried out. 06:28 Reassessment: Blood sugar 148 mg/Dl, ED provider informed for discharge. [phone] sandra rr5 informed patient is for discharge. he will call his sister to arrange transport. 07:00 Reassessment: Patient appears in no apparent distress at this time. pt clinches eyes sg shut when asked questions, responds well to noxious stimuli, pt reports " dont do that, that stinks." pt to be dispo to home, awaiting for patient daughter to transport patient to home. Vital Signs: 04/16 23:50 BP 104 / 57; Pulse 71; Resp 16; Temp 97.7; Pulse Ox 95% ; rr5 04/17 00:35 Weight 55 kg; rr5 01:00 BP 115 / 62; Pulse 62; Resp 15; Pulse Ox 98% ; rr5 01:58 BP 110 / 62; Pulse 70; Resp 19; Pulse Ox 99% ; rr5 04:38 BP 102 / 66; Pulse 70; Resp 17; Pulse Ox 100% on R/A; sg 05:30 BP 110 / 70; Pulse 79; Resp 16; Pulse Ox 99% ; rr5 06:29 BP 113 / 65; Pulse 70; Resp 15; Pulse Ox 98% ; rr5 ED Course: 04/16 23:44 Patient arrived in ED. sg 23:45 Ilir Dumont MD is Private Physician. sg 23:50 Arm band placed on right wrist. rr5 23:51 Michael Sorto, RN is Primary Nurse. rr5 23:56 Triage completed. rr5 04/17 00:05 Inserted saline lock: 20 gauge in left antecubital area, using aseptic technique. rr5 ,using aseptic technique. inserted by [facility] Blood collected. 00:06 Danny Marcelo MD is Attending Physician. pkl 00:30 Patient has correct armband on for positive identification. Placed in gown. Bed in low rr5 position. Call light in reach. Side rails up X2. 00:30 hall monitor on. Pulse ox on. NIBP on. rr5 00:37 Kaitlyn [phone] patient's daughter. mw2 01:03 Chest Single View XRAY In Process Unspecified. EDMS 01:17 CT Head Brain wo Cont In Process Unspecified. EDMS 07:05 Primary Nurse role handed off by Michael Sorto, RN bd 08:26 Odalys Laguna, HALINA is Primary Nurse. iw 08:26 No provider procedures requiring assistance completed. IV discontinued, intact, iw bleeding controlled, No redness/swelling at site. Pressure dressing applied. Administered Medications: Discontinued: NS 0.9% 1000 ml IV at 125 ml/hr continuous 00:10 Drug: D50W 25 ml Route: IVP; Site: right antecubital; rr5 01:00 Follow up: Response: No adverse reaction; Blood sugar is elevated rr5 01:40 Drug: NS 0.9% 1000 ml Route: IV; Rate: 125 ml/hr; Site: right antecubital; rr5 06:00 Follow up: Response: No adverse reaction; IV Status: Order to discontinue infusion rr5 02:00 Not Given (Other Intervention Used): NS 0.9% (30 ml/kg) 30 ml/kg IV at bolus once; rr5 Sepsis Protocol 05:50 Drug: Rocephin 1 grams Route: IV; Rate: bolus; Site: right antecubital; rr5 06:30 Follow up: Response: No adverse reaction; IV Status: Completed infusion; IV Intake: [id number] 05:50 Drug: D50W 25 ml Route: IVP; Site: right antecubital; rr5 06:30 Follow up: Response: No adverse reaction; Blood sugar is elevated rr5 05:55 Not Given (Patient Refused): Cipro 500 mg PO once rr5 Intake: 06:30 IV: 10ml; Total: 10ml. rr5 Outcome: 05:19 Discharge ordered by . pkl 08:26 Discharged to home via wheelchair, with family. iw 08:26 Condition: good 08:26 Discharge instructions given to family, Instructed on discharge instructions, follow up and referral plans. medication usage, Demonstrated understanding of instructions, follow-up care, medications, Prescriptions given X 1. 08:26 Patient left the ED. iw Addendum: 04/20/2020 07:36 Addendum: Culture Results: Positive urine culture. No further action required. Bacteria e b sensitive to prescribed antibiotic. Signatures: Dispatcher [employer] EDMS Jory Mar Steven, RN RN sg Lam, Pin, MD MD pkl Odalys Laguna RN RN Ericka Shafer mw2 Aurelia Plata Raymond, RN RN rr5 Corrections: (The following items were deleted from the chart) 04/17 00:16 04/16 23:50 BP 104 / 57; Pulse 16bpm; Resp 71bpm; Pulse Ox 95%; Temp 97.7F; rr5 rr5 04/17 02:22 01:50 Reassessment: patient uncooperative, aggressive, AOx 0, confused.explained the rr5 procedure of straight catheter., specimen obtained with the help of madan lai RN and angela KILPATRICK tech rr5
[2020-04-17] MEDS ORDERED: CIPROFLOXACIN HCL 500 MG TAB ONE (05:42)
[2020-04-17] MEDS ORDERED: CEFTRIAXONE/SWI 1gm 1 GM/10 ML SYR ONE (06:04)
--- NOTE | 2020-04-17 08:29 | RAD REPORT ---
EXAM DESCRIPTION: RAD - Chest Single View - 04/17/2020 1:03 am CLINICAL HISTORY: AMS COMPARISON: Portable May 2019 TECHNIQUE: AP portable chest image was obtained 04/17/2020 1:03 am . FINDINGS: Chronic interstitial opacification is present. Lung markings are slightly more pronounced in the right upper lobe. Assessment is limited due to very substantial patient rotation. Cardiomedias tinal silhouette within normal limits. Skin fold artifacts overlie the chest. No measurable pleural e ffusion and no pneumothorax. No acute bony abnormality seen. No acute aortic findings suspected. IMPRESSION: Chest is not substantially different from comparison. Patient has chronic interstitial l marco disease. Subtle increased opacification in the right upper lobe is present and patient can be evaluated and mo nitored for early right upper lobe pneumonia.
[2020-04-17 08:31] VITALS: TEMP 97.7
[2020-04-17 08:37] VITALS: BP 113/65; O2SAT 98
--- NOTE | 2020-04-17 12:04 | RAD REPORT ---
EXAM DESCRIPTION: CT - Head Brain Wo Cont - 04/17/2020 6:22 am CLINICAL HISTORY: Altered mental status COMPARISON: CT head 05/23/2019 TECHNIQUE: Head/brain axial images acquired without contrast. Coronal and sagittal reformats created . Exam performed according to departmental dose-optimization program which includes automated exposur e control, adjustment of mA and/or kV according to patient size, and/or use of iterative reconstructi on technique. FINDINGS: No midline shift, mass effect, intracranial hemorrhage, or hydrocephalus. Minimal hypodense periventricular cerebral white matter abnormality. Tiny, bilateral, globus pallidus calcifications. CSF spaces appear overall mildly enlarged likely representing age-appropriate cerebral volume loss. Calcified atherosclerotic intracranial internal carotid and vertebral arteries. Paranasal sinuses and mastoid air cells clear. No skull fracture or significant skull lesion. IMPRESSION: Minimal chronic small vessel ischemia. Electronically signed by: Taiwo Dennis MD 04/17/2020 1:32 AM WINDOWS ARCHITECT Due to temporary technical issues with the PACS/Fluency reporting system, reports are being signed by the in house radiologist without review as a courtesy to ensure prompt reporting. The interpreting r adiologist is fully responsible for the content of the report.
--- NOTE | 2020-04-18 06:11 | EKG ---
Test Date: 2020-04-17 Test Time: 00:42:33 Garment Worker: SWG MEASUREMENT RESULTS: Intervals: Rate: 70 MT: 152 QRSD: 80 QT: 466 QTc: 503 Jachin: P: 71 MT: 152 QRS: -11 T: 68 INTERPRETIVE STATEMENTS: Normal sinus rhythm Low voltage QRS Nonspecific T wave abnormality Prolonged QT Abnormal ECG Compared to ECG 05/23/2019 09:05:18 T-wave abnormality now present Prolonged QT interval now present Electronically Signed On 04-18-20 06:09:07 PIE CRUST MIXER by Aaron Ram
== END 2020-04-17 08:26 | disposition home or self-care (01) ==
LOC: ER 23:42
DX: E11.649 Type 2 diabetes mellitus with hypoglycemia without coma (principal); N39.0 Urinary tract infection, site not specified; G30.9 Alzheimer's disease, unspecified; F02.80 Dementia in other diseases classified elsewhere, unspecified severity, without behavioral disturbance, psychotic disturbance, mood disturbance, and anxiety
CPT/HCPCS: 93005; 87040 ×2; 87088; 85025; 87086; 80048; 36415; 82150; 82550; 85610; 82947 ×6; 80076; 83605; 85730; 84484; 82553; 83690; 84145; 70450; 71045; J0696; J7030; 81003; 81015; 87077; 87186; 96361; 96365; 96375; 99285

== ENCOUNTER 2020-04-25 16:42 | Observation (INO) | payer OTHER ==
[2020-04-25] MEDS ORDERED: NA CHLORIDE 0.9% 500 ML ONE (19:24)
--- NOTE | 2020-04-25 19:59 | RAD REPORT ---
EXAM DESCRIPTION: RAD - Chest Single View - 04/25/2020 7:24 pm CLINICAL HISTORY: weakness Chest pain. COMPARISON: Chest Single View dated 04/17/2020; Chest Single View dated 05/23/2019; CHEST SINGLE VIEW dated 08/31/2013; CHEST SINGLE VIEW dated 08/30/2013 FINDINGS: Portable technique limits examination quality. Mild infiltrate is suspected in the right lung base laterally probably representing an area of pneumo nora. Mild baseline interstitial pulmonary edema suspected. The heart is mildly enlarged in size with a tortuous thoracic aorta. No displaced fractures. IMPRESSION: Mild lateral right lung base developing pneumonia.
[2020-04-25 20:05] LABS: Protime INR 1.32
[2020-04-25 20:06] LABS: Absolute Lymphocytes (CBC) 1.8 K/uL (0.7-4.9); Basophils % 0.9 % (0-1.3); Hematocrit 39.4 % (36.0-45.0); Lymphocytes % 31.6 % (15.3-44.8); MPV 9.3 fL (7.6-11.3)
[2020-04-25 20:18] LABS: ALT/SGPT 27 U/L (12-78); AST/SGOT 30 U/L (15-37); Albumin 3.2 g/dL (3.4-5.0); Alkaline Phosphatase 107 U/L (45-117); BUN Blood Urea Nitrogen 18 mg/dL (7-18); Bicarbonate 22 mmol/L (21-32); Bilirubin Direct 0.2 mg/dL (0-0.2); Bilirubin Total 0.7 mg/dL (0.2-1.0); Glucose Level 63 mg/dL (74-106); Magnesium 2.2 mg/dL (1.8-2.4); NT PRO-BNP 134 pg/mL (<450); Potassium 3.7 mmol/L (3.5-5.1); Protein, Total 8.4 g/dL (6.4-8.2); Sodium Level 139 mmol/L (136-145); Troponin (Emerg Dept Use Only) < 0.02 ng/mL (0.0-0.045)
--- NOTE | 2020-04-25 20:53 | ER ---
Nurse's Notes [facility] Name: Kate Cruz Age: 84 yrs Sex: Female : 1935 Arrival Date: 04/25/2020 Time: 16:47 Bed 27 Private MD: Diagnosis: Pneumonia;Hypoglycemia Presentation: 04/25 16:55 Chief complaint: Patient states: Here for not eating or drinking well for 3 days. Has ll1 UTI but wont take her meds. + weakness. Coronavirus screen: Client denies travel out of the [place] in the last 14 days. At this time, the client does not indicate any symptoms associated with coronavirus-19. Ebola Screen: Patient denies travel to an Ebola-affected area in the 21 days before illness onset. Initial Sepsis Screen: Does the patient meet any 2 criteria? No. Patient's initial sepsis screen is negative. Does the patient have a suspected source of infection? No. Patient's initial sepsis screen is negative. Risk Assessment: Do you want to hurt yourself or someone else? Patient reports no desire to harm self or others. Onset of symptoms was April 22, 2020. 16:55 Method Of Arrival: Wheelchair ll1 16:55 Acuity: CHAZ 3 ll1 Historical: - Allergies: 16:57 No Known Allergies; ll1 - PMHx: 16:57 Alzheimers; Dementia; Diabetes - IDDM; DYSPHAGIA; ll1 - Immunization history:: Flu vaccine is up to date. - Social history:: Smoking status: Patient denies any tobacco usage or history of. Screenin:35 Abuse screen: Denies threats or abuse. Denies injuries from another. Nutritional ph screening: No deficits noted. Tuberculosis screening: No symptoms or risk factors identified. Fall Risk None identified. Assessment: 19:40 General: Appears in no apparent distress. Behavior is calm, cooperative, appropriate fu for age. Pain: Denies pain. Neuro: Level of Consciousness is awake, alert, obeys commands, Oriented to person, Political Anthropologist are equal bilaterally Moves all extremities. Speech is normal, Facial symmetry appears normal. Cardiovascular: Denies chest pain, vomiting, Capillary refill < 3 seconds. Respiratory: Respiratory effort is even, unlabored, Respiratory pattern is regular. GI: No signs and/or symptoms were reported involving the gastrointestinal system. : No signs and/or symptoms were reported regarding the genitourinary system. 21:00 Reassessment: Patient appears in no apparent distress at this time. Patient and/or fu family updated on plan of care and expected duration. Pain level reassessed. Family at bedside. 22:00 Reassessment: Patient appears in no apparent distress at this time. Patient and/or fu family updated on plan of care and expected duration. Pain level reassessed. Family notified that patient is for admission and need for straight cath to obtain urine specimen, family agreed. 22:10 Reassessment: Patient appears in no apparent distress at this time. nasopharyngeal swab fu for COVID 19 obtained, labelled and sent to lab. 22:10 Reassessment: Patient appears in no apparent distress at this time. straight cath done fu to obtain urine specimen. 23:00 Reassessment: Patient appears in no apparent distress at this time. No changes from fu previously documented assessment. Patient and/or family updated on plan of care and expected duration. Pain level reassessed. 04/26 00:00 Reassessment: Patient appears in no apparent distress at this time. Patient and/or fu family updated on plan of care and expected duration. Pain level reassessed. 01:00 Reassessment: Patient appears in no apparent distress at this time. No changes from fu previously documented assessment. Patient and/or family updated on plan of care and expected duration. Pain level reassessed. diaper, linens changed. Vital Signs: 04/25 16:55 BP 112 / 71; Pulse 80; Resp 18; Temp 97.1; Pulse Ox 100% ; Weight 58.97 kg; Pain 0/10; ll1 16:55 Pain 6/10; ll1 19:40 BP 148 / 89; Pulse 72; Resp 20; Temp 97.8(O); Pulse Ox 98% ; Pain 0/10; fu 20:30 BP 111 / 52; Pulse 64; Resp 96; Pulse Ox 96% on R/A; Pain 0/10; fu 21:00 BP 126 / 51; Pulse 63; Resp 18 S; Pulse Ox 99% on R/A; fu 22:00 BP 145 / 56; Pulse 68; Resp 17; Pulse Ox 100% on R/A; fu 23:00 BP 135 / 65; Pulse 71; Resp 19; Pulse Ox 98% on R/A; fu 04/26 01:00 BP 117 / 45; Pulse 68; Resp 17; Temp 98.9(A); Pulse Ox 98% on R/A; fu ED Course: 04/25 16:47 Patient arrived in ED. ds1 16:57 Triage completed. ll1 16:58 Arm band placed on. ll1 18:36 Patient has correct armband on for positive identification. Bed in low position. Call ph light in reach. Side rails up X 1. Pulse ox on. NIBP on. Door closed. Noise minimized. 18:45 Gilmar Esteban PA is PHCP. [place] 18:45 Rommel Tuttle MD is Attending Physician. [place] 18:59 EKG done, by ED staff, reviewed by Gilmar ARROYO. 5 19:07 Bob Ramsey, RN is Primary Nurse. fu 19:23 XRAY Chest (1 view) In Process Unspecified. EDMS 19:40 Inserted saline lock: 22 gauge in left forearm, using aseptic technique. Blood fu collected. 20:50 Kofi Bingham MD is Hospitalizing Provider. [place] 22:10 COVID swab sent to lab. fu 23:01 No provider procedures requiring assistance completed. fu 23:57 Repeat lab(s) drawn. by pr, sent to lab. 3 23:57 Troponin I Sent. [facility] 04/26 01:20 Patient admitted, IV remains in place. fu Administered Medications: 04/25 19:47 Drug: NS 0.9% 500 ml Route: IV; Rate: bolus; Site: left forearm; fu 21:44 Follow up: Response: No adverse reaction; IV Intake: 500ml fu Intake: 21:44 IV: 500ml; Total: 500ml. fu Outcome: 20:52 Decision to Hospitalize by Provider. [place] 04/26 01:19 Admitted to Tele room 402, Report called to HALINA Amato fu Condition: stable Instructed on the need for admit. 01:58 Patient left the ED. sg Signatures: Dispatcher [employer] EDMS Rod Harper, RN RN Gilmar Esteban PA PA [place] Nikki Owusu ds1 Vicki Stanford RN RN ph Martinez, Maria 5 Bob Ramsey, HALINA RN Cooper Lockwood 3 Arsenio, Lynsay, RN RN ll1
--- NOTE | 2020-04-25 20:53 | EDPHYS ---
Physician Documentation [facility] Name: Kate Cruz Age: 84 yrs Sex: Female : 1935 Arrival Date: 04/25/2020 Time: 16:47 Bed 27 Private MD: ED Physician Rommel Tuttle HPI: 04/25 18:46 This 84 yrs old Female presents to ER via Wheelchair with complaints of Won't jmm Eat. 18:46 Family states the patient has had decreased PO intake over the past 3 days with jmm intermittent episodes of abdominal pain and neck pain. Has not taken oral abx. Denies fever, vomiting, chest pain, SOB. Onset: The symptoms/episode began/occurred gradually, 3 day(s) ago. Historical: - Allergies: 16:57 No Known Allergies; ll1 - PMHx: 16:57 Alzheimers; Dementia; Diabetes - IDDM; DYSPHAGIA; ll1 - Immunization history:: Flu vaccine is up to date. - Social history:: Smoking status: Patient denies any tobacco usage or history of. ROS: 18:46 Cardiovascular: Negative for chest pain, palpitations, and edema, Respiratory: Negative jmm for shortness of breath, cough, wheezing, and pleuritic chest pain. 18:46 Constitutional: Positive for poor PO intake. 18:46 Abdomen/GI: Positive for abdominal pain. 18:46 Neuro: Positive for weakness. 18:46 All other systems are negative. Exam: 18:46 Constitutional: This is a well developed, well nourished patient who is awake, alert, jmm and in no acute distress. Head/Face: atraumatic. Eyes: EOMI, no conjunctival erythema appreciated ENT: Moist Mucus Membranes Neck: Trachea midline, Supple Chest/axilla: Normal chest wall appearance and motion. Cardiovascular: Regular rate and rhythm. No edema appreciated Respiratory: Normal respirations, no respiratory distress appreciated Abdomen/GI: Non distended, soft Back: Normal ROM Skin: General appearance color normal MS/ Extremity: Moves all extremities, no obvious deformities appreciated, no edema noted to the lower extremities 18:46 Neuro: Orientation: is normal, Mentation: is normal, Memory: is normal. 18:46 Psych: Behavior/mood is pleasant, cooperative. Vital Signs: 16:55 BP 112 / 71; Pulse 80; Resp 18; Temp 97.1; Pulse Ox 100% ; Weight 58.97 kg; Pain 0/10; ll1 16:55 Pain 6/10; ll1 19:40 BP 148 / 89; Pulse 72; Resp 20; Temp 97.8(O); Pulse Ox 98% ; Pain 0/10; fu 20:30 BP 111 / 52; Pulse 64; Resp 96; Pulse Ox 96% on R/A; Pain 0/10; fu 21:00 BP 126 / 51; Pulse 63; Resp 18 S; Pulse Ox 99% on R/A; fu 22:00 BP 145 / 56; Pulse 68; Resp 17; Pulse Ox 100% on R/A; fu 23:00 BP 135 / 65; Pulse 71; Resp 19; Pulse Ox 98% on R/A; fu 04/26 01:00 BP 117 / 45; Pulse 68; Resp 17; Temp 98.9(A); Pulse Ox 98% on R/A; fu MDM: 04/25 18:50 Patient medically screened. [facility] 20:49 Data reviewed: vital signs, nurses notes. Counseling: I had a detailed discussion with gilbert the patient and/or guardian regarding: the historical points, exam findings, and any diagnostic results supporting the discharge/admit diagnosis, lab results, radiology results, the need for further work-up and treatment in the hospital. ED course: I discussed that patient with Dr. Bingham whom accepted admission. . 04/25 18:46 Order name: Basic Metabolic Panel; Complete Time: 20:19 [facility] 04/25 18:46 Order name: CBC with Diff [facility] 04/25 18:46 Order name: LFT's; Complete Time: 20:19 [facility] 04/25 18:46 Order name: Magnesium; Complete Time: 20:19 [facility] 04/25 18:46 Order name: NT PRO-BNP; Complete Time: 20:19 [facility] 04/25 18:46 Order name: PT-INR; Complete Time: 20:22 [facility] 04/25 18:46 Order name: Troponin (emerg Dept Use Only); Complete Time: 20:19 [facility] 04/25 20:57 Order name: Basic Metabolic Panel [facility] 04/25 20:57 Order name: Basic Metabolic Panel [facility] 04/25 20:57 Order name: CBC with Automated Diff [facility] 04/25 20:57 Order name: CBC with Automated Diff [facility] 04/25 20:57 Order name: NT PRO-BNP [facility] 04/25 20:57 Order name: NT PRO-BNP [facility] 04/25 20:58 Order name: Troponin I [facility] 04/25 18:46 Order name: XRAY Chest (1 view); Complete Time: 20:05 [facility] 04/25 18:46 Order name: EKG; Complete Time: 18:47 [facility] 04/25 18:46 Order name: Cardiac monitoring; Complete Time: 18:59 [facility] 04/25 18:46 Order name: EKG - Nurse/Tech; Complete Time: 18:59 [facility] 04/25 18:46 Order name: IV Saline Lock; Complete Time: 19:47 [facility] 04/25 20:57 Order name: Regular [facility] 04/25 20:58 Order name: Troponin I [facility] 04/25 20:58 Order name: Troponin I [facility] 04/25 22:00 Order name: COVID-19 04/25 22:33 Order name: Urine Dipstick--Ancillary (enter results) [facility] 04/25 22:33 Order name: CORONAVIRUS [facility] 04/25 23:18 Order name: SARS-COV-2 RT PCR [facility] 04/26 00:39 Order name: Manual Differential [facility] 04/26 00:46 Order name: Urine Dipstick-Ancillary [facility] 04/26 01:30 Order name: Glucose, Ancillary Testing [facility] 04/25 18:46 Order name: Labs collected and sent; Complete Time: 19:47 [facility] 04/25 18:46 Order name: O2 Per Protocol; Complete Time: 18:57 [facility] 04/25 18:46 Order name: O2 Sat Monitoring; Complete Time: 18:57 [facility] 04/25 18:56 Order name: Urine Dipstick-Ancillary (obtain specimen); Complete Time: 22:30 [facility] 04/25 20:43 Order name: Misc. Order: need urine; Complete Time: 22:30 [facility] Administered Medications: 19:47 Drug: NS 0.9% 500 ml Route: IV; Rate: bolus; Site: left forearm; fu 21:44 Follow up: Response: No adverse reaction; IV Intake: 500ml fu Disposition: 04/25/20 20:52 Hospitalization ordered by Kofi Bingham for Observation. Preliminary diagnosis are Pneumonia, Hypoglycemia. - Bed requested for Telemetry/MedSurg (observation). - Status is Observation. sg - Condition is Stable. - Problem is new. - Symptoms are unchanged. Addendum: 04/28/2020 10:11 Co-signature as Attending Physician, Rommel Tuttle MD. r n Signatures: Dispatcher [employer] EDHollie Caro RN Rod Pitt RN RN Gilmar Lopes, DINA PA [facility] Rommel Tuttle MD MD rn Umadhay, Felix RN Memo Lucas RN RN ll1 Corrections: (The following items were deleted from the chart) 04/26 00:10 04/25 20:52 Hospitalization Ordered by Kofi Bingham MD for Observation. Preliminary diagnosis is Pneumonia; Hypoglycemia. Bed requested for Telemetry/MedSurg (observation). Status is Observation. Condition is Stable. Problem is new. Symptoms are unchanged. [facility] 04/26 01:58 00:10 04/25/2020 20:52 Hospitalization Ordered by Kofi Bingham MD for Observation. sg Preliminary diagnosis is Pneumonia; Hypoglycemia. Bed requested for Telemetry/MedSurg (observation). Status is Observation. Condition is Stable. Problem is new. Symptoms are unchanged. dw
[2020-04-25] MEDS ORDERED: IPRATROPIUM BROM 0.5MG/2.5ML NEB PRN (20:55)
[2020-04-25] MEDS ORDERED: ACETAMINOPHEN 500 MG TAB PO PRN (20:55)
[2020-04-25] MEDS ORDERED: ONDANSETRON 4 MG/2 ML VIAL IV PRN (20:55)
[2020-04-25] MEDS ORDERED: ALBUTEROL 2.5 MG/3 ML NEB SOL NEB PRN (20:55)
[2020-04-25] MEDS ORDERED: CEFTRIAXONE 1 GM/NS 50 ML 1 GM/50 ML BAG IV SCH (21:00)
[2020-04-25] MEDS ORDERED: CEFTRIAXONE 1,000 MG in WATER FOR INJ,STERILE 10 ML IVP SCH (22:00)
[2020-04-26 00:39] LABS: Blood Morphology Comment NOT SEEN (NOT SEEN); Platelet Estimate ADEQ
[2020-04-26 00:46] LABS: Urine Blood TRACE (NEG); Urine Glucose NEGATIVE (NEG); Urine Protein 1+ (NEG); Urine Specific Gravity >1.030 (1.005-1.030)
[2020-04-26 02:10] VITALS: BP 117/45; TEMP 98.9
[2020-04-26 03:01] VITALS: BMI 3705.5
[2020-04-26] MEDS ORDERED: D50W 25 GM/50 ML SYRINGE IV PRN (03:11)
[2020-04-26 04:32] LABS: Absolute Lymphocytes (CBC) 1.6 K/uL (0.7-4.9); Hematocrit 36.2 % (36.0-45.0); Lymphocytes % 32.4 % (15.3-44.8); MPV 9.2 fL (7.6-11.3); RBC Red Blood Cell Count 4.27 M/uL (3.86-4.86)
[2020-04-26 04:50] LABS: Potassium 3.5 mmol/L (3.5-5.1)
--- NOTE | 2020-04-26 08:30 | P.HP ---
Certification for Inpatient Patient admitted to: Observation With expected LOS: <2 Midnights Patient will require the following post-hospital care: Hospice Practitioner: I am a practitioner with admitting privileges, knowledge of patient current condition, hospital course, and medical plan of care. Services: Services provided to patient in accordance with Admission requirements found in Title 42 Section 412.3 of the Code of Federal Regulations Patient History Date of Service: 04/26/20 Primary Care Provider: Dr. Bingham Reason for admission: Poor appetite History of Present Illness: 84-year-old female with history of severe Alzheimer's dementia, diabetes. Patient lives at [facility]. She has been at this facility for over 3 years. Prior to that she has been in multiple nursing homes. She came to the ER after she has had poor appetite. She was not eating appropriately. Spoke to son in detail. Son understands patient has significant Alzheimer's dementia. Son reports patient was recently seen on 04/17/2020 in the emergency room for UTI. She was discharged at that time and sent on antibiotic therapy. Urine culture at that time showed E coli and Enterococcus. Son reports that that she is not being eating or taking her medications. This is likely from worsening Alzheimer's dementia. Son also reports that her medications for diabetes had to be discontinued due to her poor oral intake. Son is seeking options of possible care for the patient due to her current condition. The patient was seen and evaluated last night. Chest x-ray shows possible right lung pneumonia. White count within normal range. Vital signs stable. Mild hypoglycemia noted with improvement. Patient was also found to be positive for COVID. Patient appears to be asymptomatic at this time. Vital signs within normal range. Room-air saturations normal. Blood pressure stable. Patient was admitted for further evaluation and treatment. Allergies No Known Allergies Allergy (Unverified 09/03/18 07:33) Home medications list reviewed: Yes Home Medications: Brimonidine Tartrate 1 drop OU BID 01/05/13 Latanoprost Ophth [Xalatan 0.005%*] 1 drop OP BEDTIME 01/05/13 Quetiapine [Seroquel*] 25 mg PO DAILY 08/30/13 Quetiapine [Seroquel*] 100 mg PO BEDTIME 08/30/13 Vit A/Vit C/Vit E/Zinc/Copper [Preservision Areds Softgel] 1 each PO BID 08/30/13 Rivaroxaban [Xarelto*] 15 mg PO DAILY #30 tablet 09/06/13 Acetaminophen [Pain Relief] 650 mg PO Q6HR 09/03/17 Docusate [Colace Cap] 100 mg PO BID 09/03/17 Insulin Glargine,Hum.rec.anlog [Lantus Solostar] 35 unit SQ DAILY 09/03/17 Loperamide [Imodium*] 1 cap PO Q6HR PRN MDD 8 mg 09/03/17 Mag Hydroxide 8% [Milk Of Magnesia] 400 mg PO Q8HR PRN MDD 2400mg 09/03/17 Magnesium Oxide [Magnesium] 400 mg PO DAILY 09/03/17 Mirtazapine [Remeron*] 1 tab PO 30 MIN BEFORE HS 09/03/17 Multivitamin [Multiple Vitamins] 1 tab PO DAILY 09/03/17 guaiFENesin [Clary-Tussin] 100 mg PO Q6HR PRN 09/03/17 - Past Medical/Surgical History Diabetic: Yes -: Glaucoma -: Diabetes mellitus type 2 -: Severe Alzheimer's dementia -: Depression with anxiety -: Bilateral knee replacements -: Cholecystectomy -: foot surgery X2 Psychosocial/ Personal History: Patient lives at [facility] - Family History Family History: Reviewed- Non-Contributory - Social History Smoking Status: Never smoker Alcohol use: No CD- Drugs: No Caffeine use: Yes Place of Residence: [place] Review of Systems General: As per HPI Eyes: Unremarkable ENT: Unremarkable Respiratory: Unremarkable Cardiovascular: Unremarkable Gastrointestinal: Unremarkable Genitourinary: Unremarkable Musculoskeletal: Unremarkable Integumentary: Unremarkable Neurological: As per HPI Lymphatics: Unremarkable Physical Examination - Vital Signs Temperature: 98.9 F Blood Pressure: 117/45 Pulse: 68 Respirations: 17 Pulse Ox (%): 98 - Physical Exam General: Alert, In no apparent distress, Cooperative, Demented (Severe dementia) HEENT: Atraumatic Neck: Supple Respiratory: Clear to auscultation bilaterally, Normal air movement Cardiovascular: Normal pulses, Regular rate/rhythm Gastrointestinal: Normal bowel sounds, Soft and benign, Non-distended, No tenderness, No masses, No rebound, No guarding Musculoskeletal: No erythema, No tenderness, No warmth Integumentary: No erythema, No warmth, No cyanosis Neurological: Normal speech, Normal strength at 5/5 x4 extr, Normal tone, Dementia (Severe dementia) - Studies Laboratory Data (last 24 hrs) 04/25/20 19:34: PT 15.5 H, INR 1.32 04/25/20 19:34: WBC 5.6, Hgb 12.8, Hct 39.4, Plt Count 367 D 04/25/20 19:34: Sodium 139, Potassium 3.7, BUN 18, Creatinine 0.97, Glucose 63 L, Magnesium 2.2, Total Bilirubin 0.7, AST 30, ALT 27, Alkaline Phosphatase 107 Assessment and Plan - Plan Impression: Poor appetite, mild hypoglycemia with history of diabetes mellitus type 2 complicated with severe Alzheimer's dementia Possible early right sided pneumonia complicated with asymptomatic COVID 19 positive Recent UTI, urine culture positive for E coli, Enterococcus Depression with anxiety Diabetes mellitus type 2 with hypoglycemia related to severe Alzheimer's dementia Plan: Poor appetite, mild hypoglycemia with history of diabetes mellitus type 2 complicated with severe Alzheimer's dementia: Patient was admitted Overnite for further evaluation and treatment. Hypoglycemia improved. Case discussed at length with son about plan of care. Son understands patient has severe Alzheimer's dementia. Son reports patient has not been eating. [facility] and in the hospital due to hypoglycemia. Patient with underlying diabetes. Advanced care planning address in detail. Patient is do not resuscitate. This was discussed in detail with son who has medical power of litigation attorney associate. Options of care including PEG tube versus hospice verses other options were discussed in detail due to her lack of appetite and oral intake. Due to her worsening Alzheimer's dementia son agrees with hospice as the best option. This will be arranged at [facility]. If her continues condition declines at the jail and the patient refuses to the eat then son will ask hospice for comfort measures. At this time, will treat her pneumonia and UTI. Patient appears to be asymptomatic for her positive COVID 19 test. Patient without hypoxia. Patient does not appear in any respiratory distress. Will have social human services assistants arrange for hospice at discharge. Will also have social human services assistants arrange for [id number] DNR. Patient can be discharged this morning. Son agrees with plan of care. Advanced care planning-40 min. Possible early right sided pneumonia complicated with asymptomatic COVID 19 positive: Patient asymptomatic at this time. In light of her recent UTI heel will send with Levaquin 500 mg daily for 7 days. No need for oxygen at this time. Recent UTI, urine culture positive for E coli, Enterococcus: Recent cultures reviewed. Urine culture pending. [facility] the jail with Levaquin 500 mg daily for 7 days. Depression with anxiety: Patient may restart her medication. Will need to review updated medication. Diabetes mellitus type 2 with hypoglycemia related to severe Alzheimer's dementia: Hypoglycemia likely related to her lack of oral intake complicated with her Alzheimer's dementia. Continue with above plan of care. Discontinue diabetic medication. Patient may take Glucerna supplementation if needed. Discharge Plan: [place] Plan to discharge in: 24 Hours - Advance Directives Does patient have a Living Will: No Does patient have a Durable POA for Healthcare: Yes - Code Status/Comfort Care Code Status Assessed: Yes (Pt is DNR) Time Spent Managing Pts Care (In Minutes): 55
[2020-04-26 08:43] LABS: C-Reactive Protein 12.1 mg/L (<3.00); Ferritin 259.7 ng/mL (8-388)
--- NOTE | 2020-04-26 08:43 | P.DS ---
Admission Date: 04/25/20 Discharge Date: 04/26/20 Primary Care Provider: Dr. Bingham Disposition: TRANSFER TO DETENTION Discharge Condition: GOOD Reason for Admission: Poor appetite Consultations: none Procedures: COVID: Positive CXR: FINDINGS: Portable technique limits examination quality. Mild infiltrate is suspected in the right lung base laterally probably representing an area of pneumonia. Mild baseline interstitial pulmonary edema suspected. The heart is mildly enlarged in size with a tortuous thoracic aorta. No displaced fractures. IMPRESSION: Mild lateral right lung base developing pneumonia Medical Problem list: Poor appetite, mild hypoglycemia with history of diabetes mellitus type 2 complicated with severe Alzheimer's dementia Possible early right sided pneumonia complicated with asymptomatic COVID 19 positive Recent UTI, urine culture positive for E coli, Enterococcus Depression with anxiety Diabetes mellitus type 2 with hypoglycemia related to severe Alzheimer's dementia Brief History of Present Illness: 84-year-old female with history of severe Alzheimer's dementia, diabetes. Patient lives at [facility]. She has been at this facility for over 3 years. Prior to that she has been in multiple nursing homes. She came to the ER after she has had poor appetite. She was not eating appropriately. Spoke to son in detail. Son understands patient has significant Alzheimer's dementia. Son reports patient was recently seen on 04/17/2020 in the emergency room for UTI. She was discharged at that time and sent on antibiotic therapy. Urine culture at that time showed E coli and Enterococcus. Son reports that that she is not being eating or taking her medications. This is likely from worsening Alzheimer's dementia. Son also reports that her medications for diabetes had to be discontinued due to her poor oral intake. Son is seeking options of possible care for the patient due to her current condition. The patient was seen and evaluated last night. Chest x-ray shows possible right lung pneumonia. White count within normal range. Vital signs stable. Mild hypoglycemia noted with improvement. Patient was also found to be positive for COVID. Patient appears to be asymptomatic at this time. Vital signs within normal range. Room-air saturations normal. Blood pressure stable. Patient was admitted for further evaluation and treatment. Hospital Course: Patient presented with Poor appetite, mild hypoglycemia with history of diabetes mellitus type 2 complicated with severe Alzheimer's dementia. Case discussed at length with son about plan of care. Son understands patient has severe Alzheimer's dementia. Son reports patient has not been eating. Medications had to be held at the [facility] recently and in the hospital due to hypoglycemia. Patient with underlying diabetes. Advanced care planning address in detail. Patient is do not resuscitate. This was discussed in detail with son who has medical power of insurance attorney. Options of care including PEG tube versus hospice verses other options were discussed in detail due to her lack of appetite and oral intake. Due to her worsening Alzheimer's dementia son agrees with hospice as the best option. [facility] If her continues condition declines at the [facility] and the patient refuses to the eat then son will ask hospice for comfort measures. At this time, will treat her pneumonia and UTI. Patient appears to be asymptomatic for her positive COVID 19 test. Patient without hypoxia. Patient does not appear in any respiratory distress. Will have health social work professor arrange for hospice at discharge. Will also have health social work professor arrange for [id number] DNR. Patient can be discharged this morning. Son agrees with plan of care. Will provide Glucerna 1 can 3 times a day for supplementation if needed. Patient also found to have possible early right side pneumonia complicated with asymptomatic COVID 19 positive. Will send with Levaquin 500 mg daily for 7 days. No need for oxygen at this time. Patient with recent UTI. Urine urine culture positive for E coli, Enterococcus. Continue with Levaquin. Patient with depression with anxiety. Patient may continue with her current medication. Patient with diabetes mellitus type 2 with hyperglycemia related to severe Alzheimer's dementia. Continue with above plan of care. Discontinue diabetic medication. Continue with hospice. Vital Signs/Physical Exam: Temp Pulse Resp BP Pulse Ox 98.9 F 68 17 117/45 L 98 04/26/20 08:31 04/26/20 08:31 04/26/20 08:31 04/26/20 08:31 04/26/20 08:31 General: Alert, In no apparent distress, Demented (Severe dementia) HEENT: Atraumatic Neck: Supple Respiratory: Clear to auscultation bilaterally, Normal air movement Cardiovascular: Normal pulses, Regular rate/rhythm Gastrointestinal: Normal bowel sounds, Soft and benign, Non-distended Musculoskeletal: No tenderness, No warmth Neurological: Normal speech, Normal strength at 5/5 x4 extr, Normal tone, Dementia (Severe dementia) Laboratory Data at Discharge: WBC 5.0 K/uL (4.3-10.9) 04/26/20 03:55 Hgb 12.1 g/dL (12.0-15.0) 04/26/20 03:55 Hct 36.2 % (36.0-45.0) 04/26/20 03:55 Plt Count 328 K/uL (152-406) 04/26/20 03:55 PT 15.5 SECONDS (9.5-12.5) H 04/25/20 19:34 INR 1.32 04/25/20 19:34 Sodium 140 mmol/L (136-145) 04/26/20 03:55 Potassium 3.5 mmol/L (3.5-5.1) 04/26/20 03:55 BUN 14 mg/dL (7-18) 04/26/20 03:55 Creatinine 0.81 mg/dL (0.55-1.3) 04/26/20 03:55 Glucose 144 mg/dL (74-106) H 04/26/20 03:55 Magnesium 2.2 mg/dL (1.8-2.4) 04/25/20 19:34 Total Bilirubin 0.7 mg/dL (0.2-1.0) 04/25/20 19:34 AST 30 U/L (15-37) 04/25/20 19:34 ALT 27 U/L (12-78) 04/25/20 19:34 Alkaline Phosphatase 107 U/L (45-117) 04/25/20 19:34 Troponin I < 0.02 ng/mL (0.0-0.045) 04/26/20 03:55 Home Medications: Brimonidine Tartrate 1 drop OU BID 01/05/13 Latanoprost Ophth [Xalatan 0.005%*] 1 drop OP BEDTIME 01/05/13 Quetiapine [Seroquel*] 25 mg PO DAILY 08/30/13 Quetiapine [Seroquel*] 100 mg PO BEDTIME 08/30/13 Acetaminophen 650 mg PO Q6HR 09/03/17 Docusate [Colace Cap*] 100 mg PO BID 09/03/17 Loperamide [Imodium*] 1 cap PO Q6HR PRN MDD 8 mg 09/03/17 Mag Hydroxide 8% [Milk Of Magnesia*] 400 mg PO Q8HR PRN MDD 2400mg 09/03/17 Mirtazapine [Remeron*] 1 tab PO 30 MIN BEFORE HS 09/03/17 Multivitamin [Multiple Vitamins] 1 tab PO DAILY 09/03/17 Glucerna Shake [Glucerna*] 237 ml PO TID #90 can 04/26/20 Levofloxacin [Levaquin] 500 mg PO DAILY #7 tablet 04/26/20 New Medications: Glucerna Shake [Glucerna*] 237 ml PO TID #90 can Levofloxacin [Levaquin] 500 mg PO DAILY #7 tablet Patient Discharge Instructions: Patient presented with Poor appetite, mild hypoglycemia with history of diabetes mellitus type 2 complicated with severe Alzheimer's dementia. Case discussed at length with son about plan of care. Son understands patient has severe Alzheimer's dementia. Son reports patient has not been eating. Medications had to be held at the [facility] recently and in the hospital due to hypoglycemia. Patient with underlying diabetes. Advanced care planning address in detail. Patient is do not resuscitate. This was discussed in detail with son who has medical power of insurance attorney. Options of care including PEG tube versus hospice verses other options were discussed in detail due to her lack of appetite and oral intake. Due to her worsening Alzheimer's dementia son agrees with hospice as the best option. This will be arranged at discharge back to the [facility]. If her continues condition declines at the [facility] and the patient refuses to the eat then son will as k hospice for comfort measures. At this time, will treat her pneumonia and UTI. Patient appears to be asymptomatic for her positive COVID 19 test. Patient without hypoxia. Patient does not appear in any respiratory distress. Will have health social work professor arrange for hospice at discharge. Will also have health social work professor arrange for [id number] DNR. Patient can be discharged this morning. Son agrees with plan of care. Patient also found to have possible early right side pneumonia complicated with asymptomatic COVID 19 positive. Will send with Levaquin 500 mg daily for 7 days. No need for oxygen at this time. Patient with recent UTI. Urine urine culture positive for E coli, Enterococcus. Continue with Levaquin. Patient with depression with anxiety. Patient may continue with her current medication. Patient with diabetes mellitus type 2 with hyperglycemia related to severe Alzheimer's dementia. Continue with above plan of care. Discontinue diabetic medication. Continue with hospice. Diet: ADA Activity: Fall precautions Followup: Ilir Dumont MD [Primary Care Provider] - Time spent managing pt's care (in minutes): 55
[2020-04-26] MEDS ORDERED: CEFTRIAXONE/SWI 1gm 1 GM/10 ML SYR IV SCH (09:00)
[2020-04-26] MEDS ORDERED: AZITHROMYCIN IV 250 MG in NA CHLORIDE 0.9% 250 ML IVPB SCH (09:00)
[2020-04-26] MEDS ORDERED: GLUCERNA SHAKE 237 ML CAN PO SCH (09:00)
[2020-04-26 10:23] VITALS: O2SAT 94
== END 2020-04-26 12:45 | disposition hospice, home (50) ==
LOC: ER 16:42 → ERHOLD 20:54 → 4TH 04-26 01:34
PROVIDERS: ADMIT Family Medicine; ATTEND Family Medicine
DX: R63.8 Other symptoms and signs concerning food and fluid intake (principal); E11.649 Type 2 diabetes mellitus with hypoglycemia without coma; G30.9 Alzheimer's disease, unspecified; F02.80 Dementia in other diseases classified elsewhere, unspecified severity, without behavioral disturbance, psychotic disturbance, mood disturbance, and anxiety; Z20.822 Contact with and (suspected) exposure to COVID-19; N39.0 Urinary tract infection, site not specified; F41.8 Other specified anxiety disorders; Z96.653 Presence of artificial knee joint, bilateral; H40.9 Unspecified glaucoma
CPT/HCPCS: 85025 ×2; 80048 ×2; 36415; 83735; 85610; 82947 ×6; 80076; 81003; 84484 ×3; 82728; 84145; 83880 ×2; 86140; 71045; 94760; 99285; U0003; J0456; J0696; J7050; J7040; G0378

== ENCOUNTER 2020-07-14 23:51 | Inpatient (IN) | payer OTHER ==
[2020-07-15 00:58] LABS: Absolute Lymphocytes (CBC) 0.8 K/uL (0.7-4.9); Basophils % 0.3 % (0-1.3); Hematocrit 44.7 % (36.0-45.0); Lymphocytes % 5.4 % (15.3-44.8); MPV 9.4 fL (7.6-11.3); RBC Red Blood Cell Count 5.17 M/uL (3.86-4.86)
[2020-07-15] MEDS ORDERED: FAMOTIDINE 20 MG/2 ML VIAL IV ONE (01:06)
[2020-07-15] MEDS ORDERED: MORPHINE 2 MG/ML SYR ONE (01:06)
[2020-07-15] MEDS ORDERED: NA CHLORIDE 0.9% 500 ML ONE (01:06)
[2020-07-15] MEDS ORDERED: ONDANSETRON 4 MG/2 ML VIAL ONE ×2 (01:06→03:52)
[2020-07-15 01:16] LABS: Albumin 2.5 g/dL (3.4-5.0); Bilirubin Direct 0.2 mg/dL (0-0.2); Bilirubin Total 0.7 mg/dL (0.2-1.0); Protein, Total 8.3 g/dL (6.4-8.2)
[2020-07-15 01:20] LABS: Platelet Estimate INCR
[2020-07-15 01:21] LABS: Blood Morphology Comment NOT SEEN (NOT SEEN); Platelets, Giant OCC
[2020-07-15] MEDS ORDERED: NA CHLORIDE 0.9% 1,000 ML ONE ×6 (02:43→16:54)
[2020-07-15] MEDS ORDERED: CEFTRIAXONE/SWI 1gm 1 GM/10 ML SYR ONE (02:43)
[2020-07-15] MEDS ORDERED: METRONIDAZOLE 500mg IVPB 500 MG/100 ML BAG IV ONE (02:44)
--- NOTE | 2020-07-15 03:06 | ER ---
Nurse's Notes [facility] Name: Kate Cruz Age: 84 yrs Sex: Female : 1935 Arrival Date: 07/14/2020 Time: 23:57 Bed 18 Private MD: Diagnosis: Volvulus;Small Bowel Obstruction Presentation: 07/14 23:57 Chief complaint: EMS states: From [place], Abdominal pain since this morning, had KUB sf suspicious for SBO. Coronavirus screen: At this time, unable to obtain information related to travel outside the [place] Ebola Screen: Patient negative for fever greater than or equal to 101.5 degrees Fahrenheit, and additional compatible Ebola Virus Disease symptoms Patient denies exposure to infectious person. Patient denies travel to an Ebola-affected area in the 21 days before illness onset. No symptoms or risks identified at this time. Initial Sepsis Screen: Does the patient meet any 2 criteria? No. Patient's initial sepsis screen is negative. Does the patient have a suspected source of infection? Yes: Acute abdominal pain. Risk Assessment: Do you want to hurt yourself or someone else? Patient reports no desire to harm self or others. Onset of symptoms was July 14, 2020. 23:57 Method Of Arrival: EMS: [facility] 23:57 Acuity: CHAZ 2 sf Triage Assessment: 07/15 00:03 General: Appears uncomfortable, Behavior is calm, cooperative. Pain: Complains of pain sf in abdomen. EENT: No deficits noted. No signs and/or symptoms were reported regarding the EENT system. Neuro: Level of Consciousness is awake, Oriented to person. Cardiovascular: No deficits noted. Patient's skin is warm and dry. Respiratory: No deficits noted. Airway is patent Respiratory effort is even, unlabored, Respiratory pattern is regular, symmetrical. GI: Abdomen is round distended, Abdomen is tender to palpation X 4 quads. Guarding noted X 4 quads. firm Reports lower abdominal pain, upper abdominal pain. : No deficits noted. No signs and/or symptoms were reported regarding the genitourinary system. Derm: No deficits noted. No signs and/or symptoms reported regarding the dermatologic system. Musculoskeletal: No deficits noted. No signs and/or symptoms reported regarding the musculoskeletal system. Historical: - Allergies: 00:03 No Known Allergies; sf - Home Meds: 01:06 folic acid 1 mg Oral tab 1 tab once daily [Active]; latanoprost 0.005 % ophthalmic drop sf 1 drop once daily [Active]; mirtazapine 15 mg Oral tab 1 tab once daily [Active]; quetiapine 25 mg oral tab 1 tab daily [Active]; Seroquel 50 mg Oral tab 2 tabs nightly [Active]; brimonidine tartrate (bulk) miscellaneous twice a day [Active]; magnesium oxide 400 mg Oral tab twice a day [Active]; bisacodyl 5 mg Oral TbEC 2 tabs once daily [Active]; magnesium citrate oral soln [Active]; Milk of Magnesia 400 mg/5 mL Oral susp 30 mL once daily [Active]; Lantus 100 unit/mL Sub-Q soln 30 unit daily [Active]; - PMHx: 00:03 Alzheimers; Dementia; Diabetes - IDDM; DYSPHAGIA; sf 01:06 anorexia; sf - Immunization history:: Adult Immunizations unknown. - Social history:: Smoking status: Patient denies any tobacco usage or history of. Screenin:04 Abuse screen: Denies threats or abuse. Denies injuries from another. Nutritional sf screening: No deficits noted. Tuberculosis screening: No symptoms or risk factors identified. Never had TB. Possible symptoms: None Risk factors: None. Fall Risk Fall in past 12 months (25 points). Secondary diagnosis (15 points) dementia, impaired mobility, IV access (20 points). Ambulatory Aid- Crutches/Cane/Walker (15 pts). Gait- Impaired (20 pts.). Mental Status- Overestimates/Forgets Limitations (15 pts.). Total Banuelos Fall Scale indicates High Risk Score (45 or more points). Fall prevention measures have been instituted. Side Rails Up X 2 Placed Close to Nursing Station Frequent Obs/Assessments Occuring. Assessment: 00:04 Reassessment: SEE TRIAGE ASSESSMENT. sf 01:00 Reassessment: Patient appears in no apparent distress at this time. Patient and/or sf family updated on plan of care and expected duration. Pain level reassessed. 02:17 Reassessment: Patient appears in no apparent distress at this time. Patient and/or sf family updated on plan of care and expected duration. Pain level reassessed. 03:23 Reassessment: Patient appears in no apparent distress at this time. Patient and/or sf family updated on plan of care and expected duration. Pain level reassessed. Vital Signs: 07/14 23:57 BP 116 / 96; Pulse 100; Resp 20; Temp 97.4(A); Pulse Ox 96% ; Weight 55.7 kg; sf 07/15 00:52 BP 123 / 95; Pulse 92; Resp 18; Pulse Ox 92% ; sf 01:58 BP 96 / 44; Pulse 94; Resp 16; Pulse Ox 95% ; sf 02:02 BP 82 / 33; Pulse 92; Resp 16; Pulse Ox 96% ; sf 02:33 BP 100 / 56; Pulse 96; Resp 16; Pulse Ox 93% ; sf 02:41 BP 101 / 39; Pulse 94; Resp 16; Pulse Ox 95% ; sf 02:45 BP 101 / 50; Pulse 89; Resp 16; Pulse Ox 95% ; sf 03:00 BP 97 / 30; Pulse 91; Resp 16; Pulse Ox 95% ; sf 03:15 BP 92 / 78; Pulse 90; Resp 16; Pulse Ox 93% ; sf ED Course: 07/14 23:57 Patient arrived in ED. sf 23:57 Rod Jarvis, HALINA is Primary Nurse. sf 07/15 00:02 Triage completed. sf 00:03 Jason Conte MD is Attending Physician. mh7 00:03 Arm band placed on. sf 00:04 Patient has correct armband on for positive identification. Bed in low position. Call sf light in reach. Side rails up X2. Pulse ox on. NIBP on. Door closed. Noise minimized. Visitors limited. Lights dimmed. Warm blanket given. Verbal reassurance given. 00:28 Missed attempt(s): 22 gauge in left forearm. sf 00:30 Missed attempt(s): 22 gauge in left forearm. sf 00:35 Missed attempt(s): 22 gauge in right forearm. by HALINA Salgado charge. sf 00:38 Pt visited by son. sf 00:40 Initial lab(s) drawn, by ED staff, sent to lab. Inserted saline lock: 20 gauge in right sf antecubital area, using aseptic technique. Blood collected. by HALINA Salgado charge. 00:55 Basic Metabolic Panel Sent. sf 01:31 Abdomen In Process Unspecified. EDMS 02:39 EKG done, by ED staff, reviewed by Jason Conte MD. sf 03:04 Lito Mcclendon MD is Hospitalizing Provider. [facility] 03:10 Initial lab(s) drawn, by pr, sent to lab. (blood band). sf 03:23 Awaiting surgery. sf 03:24 Hospitalizing Provider role handed off by Lito Mcclendon MD 7 03:24 Charles Humphrey MD is Hospitalizing Provider. [facility] 03:28 Type And Screen Sent. sf 03:29 Protime (+inr) Sent. sf 03:29 Ptt, Activated Sent. sf 03:39 No provider procedures requiring assistance completed. Patient admitted, IV remains in sf place. Administered Medications: 00:45 Drug: Zofran (Ondansetron) 4 mg Route: IVP; Site: right antecubital; sf 01:59 Follow up: Response: No adverse reaction sf 00:45 Drug: morphine 2 mg Route: IVP; Site: right antecubital; sf 01:59 Follow up: Response: No adverse reaction sf 00:46 Drug: NS 0.9% 500 ml Route: IV; Rate: bolus; Site: right antecubital; sf 03:00 Follow up: IV Status: Completed infusion; IV Intake: 500ml sf 03:00 Follow up: Response: No adverse reaction sf 00:47 Drug: Pepcid (famotidine) 20 mg Route: IVP; Site: right antecubital; sf 01:59 Follow up: Response: No adverse reaction sf 02:27 Drug: NS 0.9% 1000 ml Route: IV; Rate: 1000 ml; Site: right antecubital; sf 03:41 Follow up: IV Status: Infusion continued upon admission sf 02:28 Drug: Rocephin (cefTRIAXone) 1 grams Route: IV; Rate: per protocol; Site: right sf antecubital; 02:33 Follow up: IV Status: Completed infusion; IV Intake: 10ml sf 03:29 Follow up: Response: No adverse reaction sf 02:30 Drug: Flagyl 500 mg Volume: 100 ml; Route: IVPB; Rate: 200 ml/hr; Infused Over: 30 sf mins; Site: right antecubital; 03:00 Follow up: IV Status: Completed infusion; IV Intake: 500ml sf 03:30 Follow up: IV Status: Completed infusion; IV Intake: 100ml sf Intake: 02:33 IV: 10ml; Total: 10ml. sf 03:00 IV: 500ml; Total: 510ml. sf 03:00 IV: 500ml; Total: 1010ml. sf 03:30 IV: 100ml; Total: 1110ml. sf Outcome: 03:05 Decision to Hospitalize by Provider. [facility] 03:39 Admitted to OR accompanied by nurse, via stretcher, Report called to Antoinette Livignston RN 03:39 Condition: stable 03:39 Instructed on the need for admit. 03:40 Patient left the ED. sf 04:26 Patient left the ED. mw2 Signatures: Dispatcher [employer] EDCT Ericka Shafer mw2 Jason Conte MD MD 7 Rod Jarvis RN RN sf Corrections: (The following items were deleted from the chart) 02:44 02:30 NS 0.9% 1000 ml IV at 1000 ml in right antecubital sf sf 02:49 00:03 GI: Abdomen is round Guarding noted X 4 quads. Reports lower abdominal pain, sf upper abdominal pain, sf
--- NOTE | 2020-07-15 03:06 | EDPHYS ---
Physician Documentation [facility] Name: Kate Cruz Age: 84 yrs Sex: Female : 1935 Arrival Date: 07/14/2020 Time: 23:57 Bed 18 Private MD: ED Physician Jason Conte HPI: 07/15 00:48 This 84 yrs old Female presents to ER via EMS with complaints of Abdominal mh7 Pain. 00:48 The patient presents with abdominal pain that is diffuse. mh7 00:48 Onset: The symptoms/episode began/occurred yesterday. The symptoms do not radiate. mh7 Associated signs and symptoms: Pertinent positives: vomiting. The symptoms are described as vague. Modifying factors: The symptoms are alleviated by nothing, the symptoms are aggravated by nothing. Severity of pain: At its worst the pain was moderate yesterday, in the emergency department the pain is unchanged. Patient with dementia sent from care facility due to abdominal pain. Per care facility patient had an abdominal x ray that was suspicious for SBO and reportedly vomited.. Historical: - Allergies: 00:03 No Known Allergies; sf - Home Meds: 01:06 folic acid 1 mg Oral tab 1 tab once daily [Active]; latanoprost 0.005 % ophthalmic drop sf 1 drop once daily [Active]; mirtazapine 15 mg Oral tab 1 tab once daily [Active]; quetiapine 25 mg oral tab 1 tab daily [Active]; Seroquel 50 mg Oral tab 2 tabs nightly [Active]; brimonidine tartrate (bulk) miscellaneous twice a day [Active]; magnesium oxide 400 mg Oral tab twice a day [Active]; bisacodyl 5 mg Oral TbEC 2 tabs once daily [Active]; magnesium citrate oral soln [Active]; Milk of Magnesia 400 mg/5 mL Oral susp 30 mL once daily [Active]; Lantus 100 unit/mL Sub-Q soln 30 unit daily [Active]; - PMHx: 00:03 Alzheimers; Dementia; Diabetes - IDDM; DYSPHAGIA; sf 01:06 anorexia; sf - Immunization history:: Adult Immunizations unknown. - Social history:: Smoking status: Patient denies any tobacco usage or history of. ROS: 00:48 Unable to obtain ROS due to baseline dementia. mh7 Exam: 00:48 Head/Face: Normocephalic, atraumatic. Eyes: Pupils equal round and reactive to light, 7 extra-ocular motions intact. Lids and lashes normal. Conjunctiva and sclera are non-icteric and not injected. Cornea within normal limits. Periorbital areas with no swelling, redness, or edema. Neck: Trachea midline, no thyromegaly or masses palpated, and no cervical lymphadenopathy. Supple, full range of motion without nuchal rigidity, or vertebral point tenderness. No Meningismus. Chest/axilla: Normal chest wall appearance and motion. Nontender with no deformity. No lesions are appreciated. Cardiovascular: Regular rate and rhythm with a normal S1 and S2. No gallops, murmurs, or rubs. Normal PMI, no JVD. No pulse deficits. Respiratory: Lungs have equal breath sounds bilaterally, clear to auscultation and percussion. No rales, rhonchi or wheezes noted. No increased work of breathing, no retractions or nasal flaring. 00:48 Back: No spinal tenderness. No costovertebral tenderness. Full range of motion. Skin: Warm, dry with normal turgor. Normal color with no rashes, no lesions, and no evidence of cellulitis. MS/ Extremity: Pulses equal, no cyanosis. Neurovascular intact. Full, normal range of motion. 00:48 Constitutional: The patient appears in no acute distress, alert, awake, uncomfortable. 00:48 Abdomen/GI: Inspection: obese Bowel sounds: active, all quadrants, Palpation: moderate abdominal tenderness, in all quadrants, Indicators: McBurney's point is not tender, Lovelace's sign is negative, Rovsing's sign is negative, Obturator sign is negative, Psoas sign is negative, Liver: no appreciated palpable abnormalities, Hernia: not appreciated. 00:48 Neuro: Orientation: no acute changes, to person, Mentation: unable to test, the patient has a history of dementia, Memory: unable to test, the patient has a history of dementia, Cranial nerves: unable to test, the patient has a history of dementia, Cerebellar function: unable to test, the patient has a history of dementia, Motor: moves all fours, Sensation: no obvious gross deficits, Gait: not tested. seizure activity, is not displayed by the patient, Abnormal movements: there are no abnormal movements. Vital Signs: 07/14 23:57 BP 116 / 96; Pulse 100; Resp 20; Temp 97.4(A); Pulse Ox 96% ; Weight 55.7 kg; sf 07/15 00:52 BP 123 / 95; Pulse 92; Resp 18; Pulse Ox 92% ; sf 01:58 BP 96 / 44; Pulse 94; Resp 16; Pulse Ox 95% ; sf 02:02 BP 82 / 33; Pulse 92; Resp 16; Pulse Ox 96% ; sf 02:33 BP 100 / 56; Pulse 96; Resp 16; Pulse Ox 93% ; sf 02:41 BP 101 / 39; Pulse 94; Resp 16; Pulse Ox 95% ; sf 02:45 BP 101 / 50; Pulse 89; Resp 16; Pulse Ox 95% ; sf 03:00 BP 97 / 30; Pulse 91; Resp 16; Pulse Ox 95% ; sf 03:15 BP 92 / 78; Pulse 90; Resp 16; Pulse Ox 93% ; sf MDM: 03:02 Differential diagnosis: bowel obstruction, diverticulitis, gastritis, gastroesophageal mh7 reflux disease, non-specific abd pain, pancreatitis, Peptic Ulcer Disease, Perf. Duodenal Ulcer, Perf. Gastric Ulcer, urinary tract infection. Data reviewed: vital signs, nurses notes, EMS record, alf records, lab test result(s), CBC, electrolytes, urinalysis, radiologic studies, CT scan. Data interpreted: Pulse oximetry: on room air is 95 %. Interpretation: normal. Counseling: I had a detailed discussion with the patient and/or guardian regarding: the historical points, exam findings, and any diagnostic results supporting the discharge/admit diagnosis, lab results, radiology results, the need for further work-up and treatment in the hospital. Physician consultation: Lito Mcclendon MD and will see patient in OR, shortly. 03:[address] [facility] 03:23 Physician consultation: would like admission per Dr. Charles Humphrey MD. [facility] 07/15 00:11 Order name: Basic Metabolic Panel [facility] 07/15 00:11 Order name: CBC with Diff; Complete Time: 01:52 [facility] 07/15 00:11 Order name: Hepatic Function; Complete Time: 01:52 [facility] 07/15 00:11 Order name: Lipase; Complete Time: 01:52 [facility] 07/15 00:11 Order name: Basic Metabolic Panel; Complete Time: 01:52 EDMS 07/15 01:05 Order name: Manual Differential; Complete Time: 01:52 EDSD 07/15 01:05 Order name: Abdomen ; Complete Time: 02:07 [facility] 07/15 02:39 Order name: Protime (+inr) [facility] 07/15 02:39 Order name: Ptt, Activated [facility] 07/15 03:14 Order name: Type And Screen 07/15 00:11 Order name: IV Saline Lock; Complete Time: 00:55 [facility] 07/15 00:11 Order name: Labs collected and sent; Complete Time: 00:55 [facility] 07/15 00:11 Order name: EKG - Nurse/Tech; Complete Time: 02:56 7 Administered Medications: 00:45 Drug: Zofran (Ondansetron) 4 mg Route: IVP; Site: right antecubital; sf 01:59 Follow up: Response: No adverse reaction sf 00:45 Drug: morphine 2 mg Route: IVP; Site: right antecubital; sf 01:59 Follow up: Response: No adverse reaction sf 00:46 Drug: NS 0.9% 500 ml Route: IV; Rate: bolus; Site: right antecubital; sf 03:00 Follow up: IV Status: Completed infusion; IV Intake: 500ml sf 03:00 Follow up: Response: No adverse reaction sf 00:47 Drug: Pepcid (famotidine) 20 mg Route: IVP; Site: right antecubital; sf 01:59 Follow up: Response: No adverse reaction sf 02:27 Drug: NS 0.9% 1000 ml Route: IV; Rate: 1000 ml; Site: right antecubital; sf 03:41 Follow up: IV Status: Infusion continued upon admission sf 02:28 Drug: Rocephin (cefTRIAXone) 1 grams Route: IV; Rate: per protocol; Site: right sf antecubital; 02:33 Follow up: IV Status: Completed infusion; IV Intake: 10ml sf 03:29 Follow up: Response: No adverse reaction sf 02:30 Drug: Flagyl 500 mg Volume: 100 ml; Route: IVPB; Rate: 200 ml/hr; Infused Over: 30 sf mins; Site: right antecubital; 03:00 Follow up: IV Status: Completed infusion; IV Intake: 500ml sf 03:30 Follow up: IV Status: Completed infusion; IV Intake: 100ml sf Disposition: 07/15/20 03:05 Hospitalization ordered by Charles Humphrey for Inpatient Admission. Preliminary diagnosis are Volvulus, Small Bowel Obstruction. - Bed requested for Operating Room. - Status is Inpatient Admission. mw2 - Condition is Serious. - Problem is new. - Symptoms are unchanged. Signatures: Dispatcher [employer] EDSD Ericka Shafer mw2 Jason Conte MD MD [facility] Rod Jarvis RN RN sf Corrections: (The following items were deleted from the chart) 01:05 00:13 Abdomen Pelvis W Con+CT.RAD.BRZ ordered. EDSD EDSD 03:24 03:05 Hospitalization Ordered by Lito Mcclendon MD for Inpatient Admission. Preliminary [facility] diagnosis is Volvulus; Small Bowel Obstruction. Bed requested for Operating Room. Status is Inpatient Admission. Condition is Serious. Problem is new. Symptoms are unchanged. [facility] 03:40 03:24 07/15/2020 03:05 Hospitalization Ordered by Charles Humphrey MD for Inpatient sf Admission. Preliminary diagnosis is Volvulus; Small Bowel Obstruction. Bed requested for Operating Room. Status is Inpatient Admission. Condition is Serious. Problem is new. Symptoms are unchanged. [facility] 04:26 03:40 07/15/2020 03:05 Hospitalization Ordered by Charles Humphrey MD for Inpatient mw2 Admission. Preliminary diagnosis is Volvulus; Small Bowel Obstruction. Bed requested for Operating Room. Status is Inpatient Admission. Condition is Serious. Problem is new. Symptoms are unchanged. sf
[2020-07-15 03:37] LABS: Protime INR 1.28
[2020-07-15] MEDS ORDERED: GLYCOPYRROLATE 0.2 MG/ML SYR ONE ×2 (03:50→06:47)
[2020-07-15] MEDS ORDERED: FENTANYL CITR 100 MCG/2 ML ONE (03:50)
[2020-07-15] MEDS ORDERED: NEOSTIGMINE 1 MG/ML -5 ML ONE ×2 (03:51→06:52)
[2020-07-15] MEDS ORDERED: MIDAZOLAM HCL 2 MG/2 ML INJ ONE (03:51)
[2020-07-15] MEDS ORDERED: dexAMETHasone 4 MG/ML VIAL ONE (03:51)
[2020-07-15] MEDS ORDERED: ETOMIDATE 20 MG/10 ML VIAL IV ONE (03:52)
[2020-07-15] MEDS ORDERED: KETOROLAC 30 MG/ML INJ ONE (03:52)
[2020-07-15] MEDS ORDERED: ROCURONIUM 50 MG/5 ML VIAL IV ONE (03:52)
--- NOTE | 2020-07-15 04:20 | P.CNS ---
Date of Consult: 07/15/20 PC: This this old female was brought in from the [facility] with a suspected abdominal pain. HPC: This 84-year-old female has Alzheimer's. She is not extended care facility. She is noted been not herself since yesterday. Today her agitation became worse and it was noted that her abdomen was quite swollen. PMH: Diabetes SOC: No known allergies SYS REVIEW: Patient has Alzheimer's and rest of her systems review is unavailable O/E vital signs are stable at the moment but uncomfortable HEENT: Within normal limits Chest: Chest movement equal bilaterally ABD: Markedly distended and tympanic hand exquisitely tender LOCO: Intact DATA: Elevated white cell count, CT scan shows massive dilatation of the cecum with most likely a volvulus or bascule IMPRESSION: Cecal volvulus PLAN: I will take her the operating room for exploratory laparotomy. The risks of this procedure have been discussed with her son and daughter. The probable outcome of doing nothing was also explained. The possibility of bleeding, infection, injury to bowel and surrounding structures were outlined. The grave prognosis associated with this, and the need for probable bowel resection were explained. Colostomy, bleeding, and other unexpected events were explained. They understand want to proceed. I will I will take her to OR once the room has been set up.
--- NOTE | 2020-07-15 04:45 | P.HP ---
Certification for Inpatient Patient admitted to: Inpatient With expected LOS: >2 Midnights Patient will require the following post-hospital care: Jail Practitioner: I am a practitioner with admitting privileges, knowledge of patient current condition, hospital course, and medical plan of care. Services: Services provided to patient in accordance with Admission requirements found in Title 42 Section 412.3 of the Code of Federal Regulations <Shay Mederos Dereck - Last Filed: 07/15/20 04:38> Patient History Date of Service: 07/15/20 Reason for admission: cecal volvulus History of Present Illness: Ms. Cruz is an 84 yo F with DM and dementia who was brought in from her senior care for abdominal pain, nausea and vomiting after they completed an AXR concerning for SBO. CT scan here showed possible cecal volvulus. WBC 15.2. BUN 74. Cr 2.06. GFR 23. Glu 132. Son and daughter at bedside. - Past Medical/Surgical History Diabetic: Yes -: Glaucoma -: Diabetes mellitus type 2 -: Severe Alzheimer's dementia -: Depression with anxiety -: anxiety -: Bilateral knee replacements -: Cholecystectomy -: foot surgery X2 Psychosocial/ Personal History: Patient lives at [facility] - Social History Alcohol use: No CD- Drugs: No Caffeine use: Yes Place of Residence: Long Term <Daylin Mederosalejandra Harden - Last Filed: 07/15/20 04:38> Date of Service: 07/15/20 <Charles Humphrey - Last Filed: 07/16/20 05:10> Allergies No Known Allergies Allergy (Unverified 09/03/18 07:33) Home Medications: Brimonidine Tartrate 1 drop OU Q12H 01/05/13 Latanoprost Ophth [Xalatan 0.005%*] 1 drop OP BEDTIME 01/05/13 Quetiapine [Seroquel*] 25 mg PO DAILY 08/30/13 Quetiapine [Seroquel*] 100 mg PO BEDTIME 08/30/13 Mag Hydroxide 8% [Milk Of Magnesia*] 400 mg PO BID MDD 2400mg 09/03/17 Mirtazapine [Remeron*] 1 tab PO 30 MIN BEFORE HS 09/03/17 Folic Acid 1 tab PO DAILY 04/26/20 Insulin Glargine,Hum.rec.anlog [Lantus Solostar] 35 unit SQ DAILY 04/26/20 Quetiapine [Seroquel*] 25 mg PO Q4H 04/26/20 Review of Systems General: Malaise, As per HPI Eyes: Unremarkable ENT: Unremarkable Cardiovascular: Unremarkable Gastrointestinal: Nausea, Vomiting, Abdominal Pain, As per HPI Genitourinary: Unremarkable Musculoskeletal: Unremarkable Integumentary: Unremarkable Neurological: Confusion, As per HPI Lymphatics: Unremarkable <Shay Mederos - Last Filed: 07/15/20 04:38> Physical Examination - Vital Signs Temperature: 97.3 F Blood Pressure: 83/48 Pulse: 92 Respirations: 22 - Physical Exam General: Oriented x1, Cooperative, Mild distress HEENT: Atraumatic, Normocephalic, PERRLA, Mucous membr. moist/pink, EOMI, Sclerae nonicteric Neck: Supple, JVD not distended, No Thyromegaly, No LAD Respiratory: Clear to auscultation bilaterally, Normal air movement Cardiovascular: No edema, Normal pulses, Regular rate/rhythm, Normal S1 S2, No gallops, No rubs, No murmurs Capillary refill: <2 Seconds Gastrointestinal: Hypoactive, No ascites, No masses, No rebound, No guarding, Rigidity, Distended, Tenderness Musculoskeletal: No clubbing, No swelling, No contractures, No erythema, No tenderness, No warmth Integumentary: No rashes, No breakdown, No significant lesion, No tenderness/swe lling, No erythema, No warmth, No cyanosis Neurological: Normal tone, Sensation intact, Dementia Lymphatics: No axilla or inguinal lymphadenopathy - Studies Laboratory Data (last 24 hrs) 07/15/20 03:10: PT 14.8 H, INR 1.28, APTT 24.8 07/15/20 00:40: WBC 15.20 H D, Hgb 14.7, Hct 44.7, Plt Count 416 H D 07/15/20 00:40: Sodium 137, Potassium 5.0, BUN 74 H, Creatinine 2.06 H D, Glucose 132 H, Total Bilirubin 0.7, AST 33, ALT 18, Alkaline Phosphatase 132 H, Lipase 62 L <Shay Mederos - Last Filed: 07/15/20 04:38> Assessment and Plan - Problems (Diagnosis) (1) Type 2 diabetes mellitus Current Visit: Yes Status: Acute Qualifiers: 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 Mcclendon received ceftriaxone and flagyl before surgery NPO, SCDs, pain management, O2 as needed consulted nephrology for DARRIN will go to ICU after surgery Discharge Plan: Long Term Plan to discharge in: 72 Hours - Advance Directives Does patient have a Living Will: No Does patient have a Durable POA for Healthcare: Yes - Code Status/Comfort Care Code Status Assessed: Yes (DNR) Critical Care: No Time Spent Managing Pts Care (In Minutes): 70 <Sahy Mederos - Last Filed: 07/15/20 04:38> - Problems (Diagnosis) (1) Hypotension Current Visit: Yes Status: Acute (2) DARRIN (acute kidney injury) Current Visit: Yes Status: Acute (3) Cecal volvulus Current Visit: Yes Status: Acute (4) Type 2 diabetes mellitus Current Visit: Yes Status: Acute Qualifiers: 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 Agree with plan of care as mentioned above. <Charles Humphrye - Last Filed: 07/16/20 05:10>
[2020-07-15] MEDS ORDERED: ALBUMIN HUM 5% 250 ML IV ONE ×2 (05:36→06:23)
[2020-07-15] MEDS ORDERED: Phenylephrine HCl 10 MG/ML 1 ML VIAL ONE (05:41)
--- NOTE | 2020-07-15 07:07 | P.OP ---
Preoperative diagnosis: Cecal volvulus Postoperative diagnosis: Cecal bascule Primary procedure: Exploratory laparotomy Secondary procedure: Right hemicolectomy Anesthesia: General Estimated blood loss: Less than 50 cc Specimen: Terminal ileum, cecum Sign right colon Operative Technique: The patient brought to the operating room and placed supine on the table. After the induction of adequate general endotracheal anesthesia, there the abdomen was prepped with a DuraPrep solution, and she was draped in usual aseptic manner. A Paulino catheter had also been inserted. A generous midline incision was made. This brought down through the skin and subcutaneous tissue. We stayed in the supraumbilical area initially. The fascia was identified. It was opened in the midline. Access was obtained to the peritoneal cavity. We were now able to extend our incision from below the xiphoid to 4 fingers breath above the pubic symphysis. On opening the peritoneal cavity and elevating away the muscle we could see a large distended area of omentum over laying some structure. Gentle dissection of this showed it was adherent to the anterior abdominal wall. As these adhesions were gently dimple en down. We encounter a sudden bursts of fecal material. This came from numerous areas on the anterior surface of his cecum that were adherent to the anterior abdominal wall. This area was obviously vascular compromise. The bowel had actually not force but more of a bascule had formed. We were able to quickly exterior eyes cyst portion of the bowel but there was considerable intra-abdominal contamination. The distal ileum was identified. It was divided using JENNY AE. The right colon was quickly identified and once again re-loaded lattice to divide the right colon. The vasculature this was now taken down using the ligature and the specimen was handed off the field. The area was scope irrigated with a copious amount of saline solution. We actually took down the drapes after having towel clip the patient close to essentially scribed and trying decontaminate the surgical field. After having the scribed, we came back to the peritoneal cavity. The distal ileum was identified. It showed good blood flow to this area. The right colon was tracked upwards ran around the hepatic flexure to the transverse colon. At this point a [id number] functional and end-to-end anastomosis was done using the linear JENNY AE. The anastomosis was closed with a TA 55. The specimen of the redundant hepatic flexure to our anastomosis part of the colon was sent as a specimen as well. At this point the abdomen was once again irrigated with a copious amount of saline solution until the effluent was clear. The intestine was run down from the liver ligament of Treitz to our anastomosis. Stay sutures were placed between the distal small bowel and the transverse colon to take pressure off for anastomosis. At this point the position of the nasogastric tube was confirmed. It had required summary cup position but was now in the stomach. We had a a considerable amount of baffle and removed from the nasogastric tube. At this point the fascia was approximated with a running looped suture of 2 PDS. The skin was then loosely approximated with robinson. Iodoform gauze was placed between the robinson to keep the wound open as there is obviously gross contamination in the subcutaneous tissue from our irrigation and the surgical procedure itself. At the end of the procedure, the needle sponge instrument count was correct. We also received news that the patient is covered positive. She will be going to the ICU after surgery. Anesthesia will decide if she is extubated are not. Complications: None Transferred to: Recovery Room Condition: Fair
[2020-07-15] MEDS ORDERED: ONDANSETRON 4 MG/2 ML VIAL IV PRN (07:11)
[2020-07-15] MEDS ORDERED: NA CHLORIDE 0.9% 1,000 ML IV SCH (07:11)
[2020-07-15] MEDS: INSULIN -REGULAR HUMAN 50 UNIT/0.5 ML ML SQ SCH ×4 (07:30→21:00)
[2020-07-15] MEDS ORDERED: D50W 50 ML IV ONE (08:01)
[2020-07-15] MEDS ORDERED: Ringers Lactate 1,000 ML IV ONE (08:03)
--- NOTE | 2020-07-15 09:30 | RAD REPORT ---
EXAM DESCRIPTION: RAD - Chest Single View - 07/15/2020 8:56 am CLINICAL HISTORY: TUBE PLACEMENT Chest pain. COMPARISON: Chest Single View dated 07/14/2020; Chest Single View dated 07/09/2020; Chest Single View d ated 07/05/2020; Chest Single View dated 06/28/2020hest Single View dated 04/25/2020; Chest Single View dated 04/17/2020; Chest Single View dated 05/23/2019; CHEST SINGLE VIEW dated 08/31/2013 FINDINGS: Portable technique limits examination quality. ET tube has been placed. Tip of the ET tube appears to be at the level of the inferior aspect of the aortic arch about 1 cm proximal to the yelena. Enteric tube coils in stomach.
--- NOTE | 2020-07-15 10:54 | P.CNS ---
Date of Consult: 07/15/20 Reason for Consult: DARRIN Chief Complaint: cecal volvulus History of Present Illness: HPI pt is unable to provide HX, Hx obtained from chart An 84 yo F NH resident with DM and dementia who was brought in from her [facility] for abdominal pain, nausea and vomiting CT scan here showed possible cecal volvulus. WBC 15.2. BUN 74. Cr 2.06. GFR 23. Glu 132. Cr in 04/2020 was 1.0 pt went for surgery and required intubation ROS unable to provide Physical exam general: intubated , thin Neck; Supple, No elevated JVD hear: RRR, normal S1,2 no murmur or rub Chest: CTAb, no rale sor wheezes Abdomen: Soft , Nt Extremities no edema A/P DARRIN likely due to ischemic ATN cont IVF I/o F/U CT results avoid NSAID and contrast renal dose meds DM now with hypoglycemic episodes hold insulin cont D5NS cecal volvulus S/p surgery Sepsis with bandemia cont Abx Acute respiratory failure intubated now total time spent 65min Allergies No Known Allergies Allergy (Unverified 09/03/18 07:33) Home Medications: Brimonidine Tartrate 1 drop OU Q12H 01/05/13 Latanoprost Ophth [Xalatan 0.005%*] 1 drop OP BEDTIME 01/05/13 Quetiapine [Seroquel*] 25 mg PO DAILY 08/30/13 Quetiapine [Seroquel*] 100 mg PO BEDTIME 08/30/13 Acetaminophen 650 mg PO Q6HR 09/03/17 Mag Hydroxide 8% [Milk Of Magnesia*] 400 mg PO BID MDD 2400mg 09/03/17 Mirtazapine [Remeron*] 1 tab PO 30 MIN BEFORE HS 09/03/17 Folic Acid 1 tab PO DAILY 04/26/20 Guaifenesin [Tussin Mucus-Chest Congestion] 5 ml PO Q6H PRN 04/26/20 Insulin Glargine,Hum.rec.anlog [Lantus Solostar] 35 unit SQ DAILY 04/26/20 Multivitamin 1 tab PO DAILY 04/26/20 Mupirocin Oint [Bactroban 2% Ointment*] 1 dilip TOP BID 04/26/20 Nitrofurantoin Macrocrystal [Nitrofurantoin] 50 mg PO BEDTIME 04/26/20 Quetiapine [Seroquel*] 25 mg PO Q4H 04/26/20 Rivaroxaban [Xarelto*] 1 tab PO DAILY 04/26/20 levoFLOXacin [Levaquin] 500 mg PO DAILY #7 tab 04/26/20 - Past Medical/Surgical History Diabetic: Yes -: Glaucoma -: Diabetes mellitus type 2 -: Severe Alzheimer's dementia -: Depression with anxiety -: anxiety -: Bilateral knee replacements -: Cholecystectomy -: foot surgery X2 Psychosocial/ Personal History: Patient lives at [facility] - Social History Smoking Status: Unknown if ever smoked Alcohol use: No CD- Drugs: No Caffeine use: Yes Place of Residence: [place] Physical Examination Temp Pulse Resp BP Pulse Ox 97 F 67 18 89/52 L 07/15/20 10:05 07/15/20 10:05 07/15/20 10:05 07/15/20 10:05 Laboratory Data (last 24 hrs) 07/15/20 03:10: PT 14.8 H, INR 1.28, APTT 24.8 07/15/20 00:40: WBC 15.20 H D, Hgb 14.7, Hct 44.7, Plt Count 416 H D 07/15/20 00:40: Sodium 137, Potassium 5.0, BUN 74 H, Creatinine 2.06 H D, Glucose 132 H, Total Bilirubin 0.7, AST 33, ALT 18, Alkaline Phosphatase 132 H, Lipase 62 L
[2020-07-15] MEDS ORDERED: D5 0.9 NS 1,000 ML IV ONE (11:06)
[2020-07-15] MEDS ORDERED: HYDROCORTISONE SUC 100 MG INJ IV ONE (12:17)
[2020-07-15] MEDS ORDERED: NOREPINEPHRINE 4 MG in D5W 250 ML IV PRN (12:20)
[2020-07-15] MEDS ORDERED: ALBUMIN HUMAN 25% 100 ML IV ONE ×2 (12:35→14:00)
[2020-07-15] MEDS: NOREPINEPHRINE 4 MG in D5W 250 ML IV PRN (12:50)
[2020-07-15] MEDS: Levofloxacin500mg IV 500 MG/100 ML BAG IV SCH (12:59)
[2020-07-15] MEDS ORDERED: WATER FOR INJ,STERILE 10 ML ONE ×2 (13:11→21:41)
[2020-07-15 13:12] LABS: Urine Appearance CLOUDY (Clear); Urine Blood NEGATIVE (Negative); Urine Color DK YELLOW (Yellow); Urine Glucose NEGATIVE (Negative); Urine Protein TRACE (Negative)
--- NOTE | 2020-07-15 13:13 | P.PN ---
Subjective Date of Service: 07/15/20 Chart reviewed; patient hemodynamically has been hypotensive in the postoperative period. Spoke with patient's son who is medical prior of personal injury attorney and he reiterates that his mother made advanced directives and she does not want to be resuscitated if she has cardiac arrest. She is currently intubated in the postoperative period. Will try to slowly extubate her but as long as she is hypotensive will hold off on extubating her until we get her weaned off of the vasopressors. Patient was on Xarelto and will check a H&H as well. Will start her on Levaquin and Flagyl. I will get an echocardiogram as well. Give her 1 dose of hydrocortisone IV push and may continue if she is hypotensive. May need PICC line or central line placement as well. Currently have an additional [id number] in the antecubital region. Review of Systems is unable to be obtained Physical Examination - Vital Signs Temperature: 97 F Blood Pressure: 89/52 Pulse: 67 Respirations: 18 - Physical Exam General: Other (Intubated and sedated; patient is following commands) HEENT: Other (Intubated and sedated) Respiratory: Clear to auscultation bilaterally, Normal air movement Cardiovascular: Regular rate/rhythm, Normal S1 S2, No murmurs Gastrointestinal: Other (Diminished abdominal sounds), Absent bowel sounds, Tenderness Musculoskeletal: No clubbing, No swelling Neurological: Dementia - Studies Laboratory Data (last 24 hrs) 07/15/20 03:10: PT 14.8 H, INR 1.28, APTT 24.8 07/15/20 00:40: WBC 15.20 H D, Hgb 14.7, Hct 44.7, Plt Count 416 H D 07/15/20 00:40: Sodium 137, Potassium 5.0, BUN 74 H, Creatinine 2.06 H D, Glucose 132 H, Total Bilirubin 0.7, AST 33, ALT 18, Alkaline Phosphatase 132 H, Lipase 62 L Assessment & Plan - Problems (Diagnosis) (1) Hypotension Current Visit: Yes Status: Acute (2) DARRIN (acute kidney injury) Current Visit: Yes Status: Acute (3) Cecal volvulus Current Visit: Yes Status: Acute (4) Type 2 diabetes mellitus Current Visit: Yes Status: Acute Qualifiers: 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 Continue with IV hydration 2. Continue with IV antibiotics 3. Continue with pain control 4. NPO 5. Monitor CBC, CMP, LFTs and lipase along with electrolytes. 6. GI and DVT prophylaxis Discharge Plan: Home Plan to discharge in: Greater than 2 days - Advance Directives Does patient have a Living Will: Yes Does patient have a Durable POA for Healthcare: No - Code Status/Comfort Care Code Status Assessed: Yes Code Status: Full Code Critical Care: Yes Time Spent Managing PTS Care (In Minutes): 45
[2020-07-15 13:18] LABS: Urine Bilirubin 1+ (Negataive); Urine Microscopic Reflex ORDER UMIC
[2020-07-15 13:48] LABS: Absolute Lymphocytes (CBC) 0.4 K/uL (0.7-4.9); Basophils % 0.1 % (0-1.3); Lymphocytes % 5.9 % (15.3-44.8); MPV 9.7 fL (7.6-11.3); RBC Red Blood Cell Count 4.47 M/uL (3.86-4.86)
[2020-07-15 14:00] LABS: Urine Bacteria <20 /HPF (<20); Urine RBC <5 /HPF (NONE SEEN)
[2020-07-15 14:01] LABS: Urine Mucus 1+ /HPF (NONE SEEN); Urine Yeast PRESENT (NONE SEEN)
[2020-07-15 14:05] LABS: Albumin 1.5 g/dL (3.4-5.0); Bilirubin Total 0.5 mg/dL (0.2-1.0); Potassium 4.3 mmol/L (3.5-5.1)
[2020-07-15 14:23] LABS: Blood Morphology Comment NOT SEEN (NOT SEEN); Platelet Estimate ADEQ; White Blood Cell Scan A (OK)
[2020-07-15] MEDS ORDERED: CALCIUM GLUC 10% INJ 9.3 MEQ in NA CHLORIDE 0.9% 100 ML IV ONE (15:22)
[2020-07-15] MEDS ORDERED: NA CHLORIDE 0.9% 1,000 ML IV ONE (16:38)
[2020-07-15] MEDS: FENTANYL CITR 100 MCG/2 ML IV PRN ×2 (16:52→22:10)
[2020-07-15] MEDS: METRONIDAZOLE 500mg IVPB 500 MG/100 ML BAG IV SCH ×2 (17:40→23:12)
[2020-07-15] MEDS: HYDROCORTISONE SUC 100 MG INJ IV SCH (22:09)
[2020-07-15] MEDS ORDERED: propofoL 1,000 MG/100 ML VIAL IV PRN (22:54)
[2020-07-15] MEDS ORDERED: NA CHLORIDE 0.9% 250 ML IV PRN (22:54)
[2020-07-15] MEDS: NA CHLORIDE 0.9% 1,000 ML IV SCH (23:11)
[2020-07-15] MEDS: LORazepam 2 MG/ML VIAL IV PRN (23:11)
[2020-07-16] MEDS: HALOPERIDOL LACT 5 MG/ML INJ IV PRN ×2 (00:36→14:04)
[2020-07-16 04:44] LABS: Absolute Lymphocytes (CBC) 0.5 K/uL (0.7-4.9); Hematocrit 34.4 % (36.0-45.0); Lymphocytes % 2.1 % (15.3-44.8); MPV 9.8 fL (7.6-11.3); RBC Red Blood Cell Count 3.89 M/uL (3.86-4.86)
[2020-07-16] MEDS: MIDAZOLAM HCL 2 MG/2 ML INJ IV PRN ×2 (05:04→09:07)
[2020-07-16] MEDS: METRONIDAZOLE 500mg IVPB 500 MG/100 ML BAG IV SCH ×4 (05:05→23:39)
[2020-07-16] MEDS: NOREPINEPHRINE 4 MG in D5W 250 ML IV PRN ×2 (05:06→19:35)
--- NOTE | 2020-07-16 05:15 | P.OP ---
Date of Service: 07/15/20 Findings and Operative Technique Central line placement in right femoral vein Patient was prepped and draped sterilely. Landmarks identified; femoral artery pulsation identified; aspirated femoral vein medially 2 femoral artery pulsation. Aspirated dark blood returned. 20 cc of blood given for lab. No pu lsation identified. Wire was threaded and triple-lumen catheter placed using Seldinger technique. Sutures were placed and central line was secured. No complications.
[2020-07-16 05:16] LABS: Albumin 1.9 g/dL (3.4-5.0); Bilirubin Total 0.6 mg/dL (0.2-1.0); Ferritin 474.8 ng/mL (8-388); Magnesium 3.5 mg/dL (1.8-2.4); Phosphorus 4.5 mg/dL (2.5-4.9); Potassium 4.5 mmol/L (3.5-5.1); Protein, Total 4.4 g/dL (6.4-8.2)
[2020-07-16 05:24] LABS: Arterial Blood Carboxyhemoglob 0.6 % (0-1.5); Blood Gas Oxyhemoglobin 94.6 % (94-97); Blood O2 Saturation 96.6 % (92-98.5)
[2020-07-16 05:33] LABS: Blood Morphology Comment NOTED (NOT SEEN); Burr Cells 3+; Platelet Estimate ADEQ
--- NOTE | 2020-07-16 07:16 | EKG ---
Test Date: 2020-07-15 Test Time: 02:39:54 Furniture Arranger: TERESA MEASUREMENT RESULTS: Intervals: Rate: 92 RI: 128 QRSD: 76 QT: 394 QTc: 487 [place]: P: 64 RI: 128 QRS: 22 T: 97 INTERPRETIVE STATEMENTS: Normal sinus rhythm Possible Inferior infarct, age undetermined Abnormal ECG Compared to ECG 04/25/2020 18:55:45 Myocardial infarct finding now present Atrial premature complex(es) no longer present Electronically Signed On 07-16-20 07:14:15 CDT by Aaron Ram
[2020-07-16] MEDS: INSULIN -REGULAR HUMAN 50 UNIT/0.5 ML ML SQ SCH ×4 (07:30→23:39)
--- NOTE | 2020-07-16 08:06 | RAD REPORT ---
EXAM DESCRIPTION: Susan Single View07/16/2020 5:06 am CLINICAL HISTORY: Shortness of breath COMPARISON: July 15, 2020 FINDINGS: Endotracheal tube has its tip 8 millimeters above the yelena pointing towards the right ma instem bronchus. A nasogastric tube is coiled within the stomach. The tip lies within the gastric fun dus 4 centimeters from the GE junction. Minimal improvement in the right lung opacities IMPRESSION: Endotracheal tube has its tip 8 millimeters above the yelena pointing towards the right mainstem bronchus Minimal improvement in the right lung opacities
[2020-07-16] MEDS ORDERED: NA CHLORIDE 0.9% 2,000 ML IV ONE (08:16)
[2020-07-16] MEDS: HYDROCORTISONE SUC 100 MG INJ IV SCH ×2 (08:35→20:55)
[2020-07-16] MEDS: FAMOTIDINE 20 MG/2 ML VIAL IV SCH ×2 (08:36→20:56)
[2020-07-16] MEDS ORDERED: WATER FOR INJ,STERILE 10 ML ONE (08:51)
[2020-07-16] MEDS: NA CHLORIDE 0.9% 1,000 ML IV SCH ×2 (09:14→19:00)
--- NOTE | 2020-07-16 11:40 | RAD REPORT ---
EXAM DESCRIPTION: ADDENDUM #1 THIS REPORT CONTAINS FINDINGS THAT MAY BE CRITICAL TO PATIENT CARE: The findings were verbally discu ssed via telephone conference with Dr. Jason Conte on 07/15/2020 2:04 AM CDT. The results were ackn owledged and understood. Electronically signed by: Jaguar Waldron MD 07/15/2020 2:04 AM CDT End of Addendum EXAM DESCRIPTION: CT ABDOMEN PELVIS WITHOUT IV CONTRAST CLINICAL HISTORY: Abd pain; Nausea / vomiting TECHNIQUE: Contiguous axial images obtained through the abdomen and pelvis without IV contrast. Adela nal and sagittal reformatted images were provided. This exam was performed according to our departmental dose-optimization program, which includes autom ated exposure control, adjustment of the mA and/or kV according to patient size and/or use of iterati ve reconstruction technique. COMPARISON: None available for comparison. FINDINGS: Lung bases: Small right pleural effusion. Scattered bilateral subsegmental atelectasis/ple ural parenchymal scar. Coronary artery calcification. Small to moderate hiatal hernia. Liver: Grossly unremarkable Gallbladder and biliary system: Prior cholecystectomy. Pancreas: Severe pancreatic parenchymal atrophy. Spleen: Grossly unremarkable Adrenals: Bilateral adrenal nodularity. Kidneys: 1.8 cm cortical cyst at the medial upper pole on the right. 3.1 cm lesion with cortical and exophytic components at the lateral lower pole on the left. There is a soft tissue component along it s lateral aspect. 0.8 cm exophytic lesion with coarse calcifications at the upper pole on the left. N o calculi. No hydronephrosis. Bowel: Multiple dilated small bowel loops with air-fluid levels extending to the ileocecal valve. The cecum is moderately to severely distended, located within the mid abdomen measuring up to 12.5 cm in diameter. Twisting of the mesentery just distal to the cecum. Adjacent mesenteric edema. The remaind er of the large bowel is decompressed. Colonic diverticula without adjacent inflammatory change. Appendix: The appendix is not definitively visualized. No findings to suggest acute appendicitis. Urinary bladder: The urinary bladder is decompressed. Reproductive: Unremarkable as visualized Lymph nodes: No pathologically enlarged lymph nodes. Peritoneum: No focal fluid collection. No free air. Vessels: Mild to moderate atherosclerotic disease. No abdominal aortic aneurysm. Abdominal wall: Small to moderate fat-containing umbilical hernia. Bones: Multilevel spondylosis. Multiple remote right-sided rib fractures. Fusion at L4-L5. Remote rig ht hip gamma nail fixation. IMPRESSION: 1. Findings compatible with cecal volvulus and associated small bowel obstruction. Ciara gical consult is recommended. 2. Indeterminant 3.1 cm left renal lesion. Renal cell carcinoma is not excluded. 3. Other findings as above. Electronically signed by: Jaguar Waldron MD 07/15/2020 1:59 AM CDT Due to temporary technical issues with the PACS/Fluency reporting system, reports are being signed by the in house radiologist without review as a courtesy to ensure prompt reporting. The interpreting r adiologist is fully responsible for the content of the report.
[2020-07-16] MEDS: Levofloxacin500mg IV 500 MG/100 ML BAG IV SCH (12:03)
[2020-07-16] MEDS: LORazepam 2 MG/ML VIAL IV PRN ×2 (12:20→22:53)
--- NOTE | 2020-07-16 12:24 | P.CNS ---
Date of Consult: 07/16/20 Reason for Consult: Respiratory failure shock Chief Complaint: cecal volvulus History of Present Illness: Patient is 84 years of age admitted with volvulus of the cecum underwent right- sided hemicolectomy patient has dementia currently on a ventilator she is in shock hypotensive elevated white count Allergies No Known Allergies Allergy (Unverified 09/03/18 07:33) Home Medications: Brimonidine Tartrate 1 drop OU Q12H 01/05/13 Latanoprost Ophth [Xalatan 0.005%*] 1 drop OP BEDTIME 01/05/13 Quetiapine [Seroquel*] 25 mg PO DAILY 08/30/13 Quetiapine [Seroquel*] 100 mg PO BEDTIME 08/30/13 Mag Hydroxide 8% [Milk Of Magnesia*] 400 mg PO BID MDD 2400mg 09/03/17 Mirtazapine [Remeron*] 1 tab PO 30 MIN BEFORE HS 09/03/17 Folic Acid 1 tab PO DAILY 04/26/20 Insulin Glargine,Hum.rec.anlog [Lantus Solostar] 35 unit SQ DAILY 04/26/20 Quetiapine [Seroquel*] 25 mg PO Q4H 04/26/20 - Past Medical/Surgical History Diabetic: Yes -: Glaucoma -: Diabetes mellitus type 2 -: Severe Alzheimer's dementia -: Depression with anxiety -: anxiety -: Bilateral knee replacements -: Cholecystectomy -: foot surgery X2 Psychosocial/ Personal History: Patient lives at [facility] - Social History Smoking Status: Unknown if ever smoked Alcohol use: No CD- Drugs: No Caffeine use: No Place of Residence: Care Home Review of Systems is unable to be obtained Physical Examination Temp Pulse Resp BP Pulse Ox 97 F 94 H 23 H 108/81 100 07/16/20 05:11 07/16/20 09:30 07/16/20 09:30 07/16/20 09:30 07/16/20 09:30 General: Unresponsive Respiratory: Clear to auscultation bilaterally, Diminished Cardiovascular: No edema, Regular rate/rhythm - Problems (1) Respiratory failure Current Visit: Yes Status: Acute Plan: Patient is 84 years of age with a history of dementia admitted with right-sided a cecal volvulus. She underwent a right-sided hemo colectomy as currently hypotensive elevated white count on a ventilator white count is elevated patient is currently on levofloxacin and Flagyl currently in shock on vasopressors plan to give her 1-2 L of fluid boluses labs all reviewed endotracheal tube he is to be adjusted oxygenation status factor Qualifiers: Chronicity: acute
--- NOTE | 2020-07-16 13:45 | P.PN ---
Date of Service: 07/16/20 S: The patient is intubated, on ventilator. Was hypotensive now be resuscitated with IV fluids and Levophed. O: Vital signs are stable at the moment. The we for were Levophed. A: Patient is currently stable, however overall prognosis for this woman is grave. She had massive peritoneal contamination, at the time of surgery that was able to be walled off to to the pressure of the volvulus on her anterior abdominal wall. Peritoneal cavity was thoroughly irrigated, but abscess development is still likely. P: Will remove the packing from the incision today and continue dressing changes. Patient will most likely require some type of nutritional support soon.
[2020-07-16] MEDS: FENTANYL CITR 100 MCG/2 ML IV PRN ×2 (14:54→21:25)
--- NOTE | 2020-07-16 15:27 | RAD REPORT ---
EXAM DESCRIPTION: RAD - Chest Single View - 07/16/2020 3:08 pm CLINICAL HISTORY: E-Tube placment, respiratory distress COMPARISON: July 16 TECHNIQUE: AP portable chest image was obtained 07/16/2020 3:08 pm . FINDINGS: Endotracheal tube is in place. Tip is mid aortic arch level 2 cm above the yelena. NG tube is curled in the decompressed stomach. There is partial clearing of right lung field opacification since the examination earlier in the day. Patchy bilateral opacification remains. No progressive lung parenchymal process. Heart and vasculature are normal. No pneumothorax. No enlarging pleural effusion. IMPRESSION: Endotracheal tube in place with the tip mid aortic arch level, 2 cm above the yelena. NG tube is in good position in the stomach. Stomach is decompressed. Partial clearing of the right hemithorax since earlier examination.
[2020-07-16] MEDS ORDERED: CALCIUM GLUC 10% INJ 9.3 MEQ in NA CHLORIDE 0.9% 100 ML IV ONE ×2 (17:00→20:00)
[2020-07-16] MEDS: D5W 1,000 ML with NA BICARB 8.4% 150 MEQ IV SCH ×2 (17:48)
[2020-07-16 18:29] LABS: Arterial Blood Carboxyhemoglob 0.5 % (0-1.5); Blood Gas Oxyhemoglobin 94.7 % (94-97); Blood O2 Saturation 96.5 % (92-98.5)
--- NOTE | 2020-07-16 22:41 | PN ---
Date of Progress Note: 07/16/2020 Chief Complaint: Acute kidney injury. History Of Present Illness: The patient was admitted to the hospital because of cecal volvulus. The patient is unable to provide medical history. The patient is an 84-[facility]-old [facility] resident w ith history of dementia, who was [facility] abdominal pain, nausea , vomiting. CT scan was done and it showed cecal volvulus. White count up to 15.2. BUN was 74 and creatinine 2.06, glucose 132, and estimated GFR 23. Creatinine level baseline back in April was 1. 0. The patient has acute kidney injury, nonoliguric, and renal function has not improved significant ly over last 24 hours. The patient has ischemic acute tubular necrosis leading to acute kidney injur y. The patient is on IV fluids for hydration to prevent renal hypoperfusion. The patient is septic. White count today is up to 21.5. Renal function has not improved significantly, although the BUN i s improving from 74 to 55. The patient is on IV fluids. The patient was found to have hypocalcemia. Calcium level improved fro m 5.9 to 6.5. Albumin level is 1.9. Corrected calcium level is 8.1. Physical Examination: Lungs: Diminished breath sounds at bases. Heart: S1, S2. Abdomen: Soft, benign. Extremities: Slight edema. Laboratory Data: Albumin 1.9, total protein 4.4, calcium 6.5, phosphorus 4.5, magnesium 3.5, BUN 53, sodium 133, potassium 4.5, chloride 116, CO2 19, glucose 213. Impression And Plan: 1.Acute on chronic kidney injury, nonoliguric. The patient will continue IV fluids. 2.Hypocalcemia. Continue calcium supplementation. Phosphorus level at this point is within normal limit. 3.Acute kidney injury. Avoid IV contrast and nephrotoxic medication. 4.Diabetes mellitus. Monitor blood glucose and continue insulin. At this point, insulin is on hold due to hyperglycemic episode. 5.Respiratory failure. The patient is intubated. 6.Abdominal discomfort, volvulus per primary team and surgical team. EB/MODL Voice ID: [id number] Report ID: [id number]
[2020-07-17] MEDS: LORazepam 2 MG/ML VIAL IV PRN (04:10)
[2020-07-17] MEDS: NA CHLORIDE 0.9% 1,000 ML IV SCH (04:11)
[2020-07-17] MEDS: INSULIN -REGULAR HUMAN 50 UNIT/0.5 ML ML SQ SCH ×4 (05:25→23:43)
[2020-07-17] MEDS: METRONIDAZOLE 500mg IVPB 500 MG/100 ML BAG IV SCH ×4 (05:25→23:36)
[2020-07-17] MEDS: NOREPINEPHRINE 4 MG in D5W 250 ML IV PRN (07:43)
[2020-07-17] MEDS: D5W 1,000 ML with NA BICARB 8.4% 150 MEQ IV SCH ×6 (07:43→23:36)
[2020-07-17] MEDS: FAMOTIDINE 20 MG/2 ML VIAL IV SCH (07:45)
[2020-07-17] MEDS: HYDROCORTISONE SUC 100 MG INJ IV SCH (07:45)
[2020-07-17] MEDS: Levofloxacin500mg IV 500 MG/100 ML BAG IV SCH (12:04)
--- NOTE | 2020-07-17 12:49 | P.PN ---
Subjective Date of Service: 07/17/20 Chief Complaint: respiratory failure Subjective: Improving ( patient is improving she has been weaned off vasopressors minimally responsive) Review of Systems is unable to be obtained Physical Examination - Vital Signs Temperature: 97.2 F Blood Pressure: 101/49 Pulse: 81 Respirations: 14 Pulse Ox (%): 97 - Physical Exam General: Unresponsive Respiratory: Clear to auscultation bilaterally, Diminished Assessment & Plan - Problems (Diagnosis) (1) Respiratory failure Current Visit: Yes Status: Acute Plan: patient shock has resolved continue to wean off the ventilator blood sugars elevated blood pressure is stable cultures negative patient is on IV fluid with some bicarbonate will discuss with general surgery regarding nutritional support Dc hydrocortisone sputum cultures ordered Qualifiers: Chronicity: acute
[2020-07-17] MEDS: FENTANYL CITR 100 MCG/2 ML IV PRN ×2 (14:05→18:32)
--- NOTE | 2020-07-17 15:19 | P.PN ---
Date of Service: 07/17/20 S: Patient is still intubated on ventilator. Vital signs appear stable. O: For portion of the wound looks good, ABD in place. Still has NG tube. A: Surgically stable P: Patient is to be extubated soon. Will try to increase nutrition once we determined she can demonstrate her gag reflex. Routine dressing changes
--- NOTE | 2020-07-17 16:22 | P.PN ---
Subjective Date of Service: 07/17/20 Primary Care Provider: unknown Chief Complaint: respiratory failure Subjective: Other (patient intubated.) Physical Examination - Vital Signs Temperature: 97.2 F Blood Pressure: 107/49 Pulse: 87 Respirations: 14 Pulse Ox (%): 91 Assessment & Plan Discharge Plan: Other (will need to discuss with family) Plan to discharge in: Greater than 2 days Physician Review Additional Text: Physical exam: Patient intubated. Still no significant change. Nurse reports still with increased somnolence. Heart: Regular rate and rhythm Lungs: Clear to auscultation Abdomen: Binding in place. Abdomen very soft. Postsurgical changes noted. Extremities: No edema noted Impression: Septic Shock secondary to Cecal volvulus status post exploratory laparotomy with right hemicolectomy complicated with bacteremia Acute respiratory failure with possible pneumonia with history of COVID 19 pneumonia Acute on chronic renal disease: DM Type 2 Dementia Plan: Septic Shock secondary to Cecal volvulus status post exploratory laparotomy with right hemicolectomy complicated with bacteremia: Continue with IV antibiotics. Now off vasopressor. Spoke to Surgery. Awaiting cultures. Will discuss with family. Will speak to Pulmonary on when he plans to extubate patient. Continue lab. Continue with IV fluids. Will discuss with nephrology as well. Acute respiratory failure with possible pneumonia with history of COVID 19 pneumonia: Continue IV antibiotic therapy. Pulmonology continue to wean off ventilator. Acute on chronic renal disease: Continue with IV fluids. Will discuss with nephrology. DM Type 2: Accu-Cheks in place. Dementia: Patient with dementia. Time Spent Managing Pts Care (In Minutes): 55
[2020-07-17] MEDS ORDERED: BRIMONIDINE TARTRATE 0.15% 5 ML OPTH SCH ×2 (16:30→21:00)
--- NOTE | 2020-07-17 18:09 | PN ---
Date of Progress Note: 07/17/2020 Subjective: The patient was admitted with small bowel obstruction. The patient on TPN. The patient had acute kidney injury secondary to prerenal. Physical Examination: Vital Signs: Blood pressure 101/49, pulse of 89. The patient had good urine output of 1400. Chest: Decreased air entry bilateral base. Heart: S1, S2. Regular. Abdomen: Soft, nontender. Extremities: Trace edema, more prominent right upper extremity. Laboratory Data: WBC 21.5, H and H 11.1/34.4. Sodium 143, potassium 4.5, bicarb 19, BUN 53, creatinine 1.4 calcium 6.5, phosphorus 4.5. Current Medications: The patient on includes sodium bicarb drip, Zofran, TPN. Assessment And Plan: 1. Acute kidney injury secondary to prerenal gastrointestinal loss, has resolved. We will continue to monitor. I am going to decrease IV fluid as the patient on TPN. 2. Hypertension, controlled, optimal. 3. Acidosis secondary to gastrointestinal loss. We will decrease the bicarb drip. Plan to discharge. 4. Small bowel obstruction as by Surgery. time spend exam the patient face to face , discussing with patient , reviewing la and radiology date, placing order , discussing the case with staff and with other team consultan and hospitalist 45 min. MELLY Voice ID: [id number] Report ID: [id number] MTDD
[2020-07-17] MEDS: LATANOPROST 0.005% 2.5ML OPTH OPTH SCH (20:29)
[2020-07-17] MEDS: BRIMONIDINE TARTRATE 0.15% 5 ML OPTH SCH (20:29)
[2020-07-18] MEDS: MIDAZOLAM HCL 2 MG/2 ML INJ IV PRN (00:51)
[2020-07-18] MEDS: METRONIDAZOLE 500mg IVPB 500 MG/100 ML BAG IV SCH ×3 (05:10→17:46)
[2020-07-18 05:30] LABS: Absolute Lymphocytes (CBC) 0.7 K/uL (0.7-4.9); Basophils % 0.1 % (0-1.3); Hematocrit 28.5 % (36.0-45.0); Lymphocytes % 5.9 % (15.3-44.8); MPV 9.8 fL (7.6-11.3); RBC Red Blood Cell Count 3.28 M/uL (3.86-4.86)
[2020-07-18 06:06] VITALS: BMI 23.1
[2020-07-18 06:29] LABS: Albumin 1.6 g/dL (3.4-5.0); Phosphorus 1.1 mg/dL (2.5-4.9); Potassium 3.2 mmol/L (3.5-5.1)
[2020-07-18] MEDS: INSULIN -REGULAR HUMAN 50 UNIT/0.5 ML ML SQ SCH ×3 (06:36→18:00)
[2020-07-18] MEDS ORDERED: POTASSIUM PHOS IN 0.9 % NACL 15 MMOL/250 ML BAG IV ONE (07:21)
[2020-07-18] MEDS: FENTANYL CITR 100 MCG/2 ML IV PRN ×3 (07:49→21:22)
[2020-07-18] MEDS ORDERED: KCL 20 MEQ/100 mL IVPB 20 MEQ/100 ML BAG IV SCH ×2 (08:00→21:00)
[2020-07-18] MEDS: BRIMONIDINE TARTRATE 0.15% 5 ML OPTH SCH ×2 (09:00→20:08)
[2020-07-18] MEDS: FAMOTIDINE 20 MG/2 ML VIAL IV SCH (10:35)
[2020-07-18] MEDS: FOLIC ACID 1 MG in NA CHLORIDE 0.9% 50 ML IV SCH (10:35)
[2020-07-18] MEDS: THIAMINE 200 MG/2 ML INJ IVP SCH (10:35)
[2020-07-18] MEDS: D5W 1,000 ML with NA BICARB 8.4% 150 MEQ IV SCH ×2 (12:31)
[2020-07-18] MEDS ORDERED: Levofloxacin500mg IV 500 MG/100 ML BAG IV SCH (13:00)
[2020-07-18] MEDS ORDERED: Levofloxacin 250mg IV 250 MG/50 ML BAG IV SCH ×2 (13:00→17:00)
--- NOTE | 2020-07-18 15:01 | PN ---
Date of Progress Note: 07/18/2020 Subjective: The patient was admitted with respiratory failure, COVID pneumonia. The patient had acute kidney injury. Kidney function has been improved. Has acute kidney injury secondary to COVID nephropathy, prerenal, toxic ATN, nonoliguric. Physical Examination: Vital Signs: When I saw the patient; the patient on vent, blood pressure 108/69, pulse of 97. The patient had good urine output of 1200. Chest: Faint rales bilateral bases. Heart: S1, S2. Regular. Abdomen: Soft, nontender. Extremity: Plus edema. Neuro: The patient on vent, sedated. Laboratory Data: WBC 12.7, H and H 9.3/28.5. Sodium 147, potassium 3.2, bicarb 28, BUN 34, creatinine 0.3, GFR of 62, calcium 7.4, phosphorus 1.1, magnesium of 3. Current Medications: The patient on include bicarb drip at 50 per hour, Levaquin, metronidazole, haloperidol, folic acid, Pepcid, Zofran, thiamin. Assessment And Plan: 1. Acute kidney injury secondary to COVID nephropathy, prerenal, recovered, resolved. I am going to continue to monitor the patient. 2. Acidosis, resolved. Discontinue bicarb drug. 3. Pneumonia/gastroenteritis. Kidney function has been improved. I am going to change Levaquin dose to 500 and we will follow up. 4. Hypophosphatemia. We will supplement. 5. Hypokalemia. We will supplement. 6. Respiratory failure secondary to COVID pneumonia. We will follow up with Pulmonary. time spend exam the patient face to face , discussing with patient , reviewing la and radiology date, placing order , discussing the case with staff and with other team consultan and hospitalist 45 min. MELLY Voice ID: [id number] Report ID: [id number] GABINO
--- NOTE | 2020-07-18 16:11 | P.PN ---
Subjective Date of Service: 07/18/20 Primary Care Provider: unknown Chief Complaint: respiratory failure Subjective: Other (Patient was intubated this morning.) Physical Examination - Vital Signs Temperature: 97.9 F Blood Pressure: 112/50 Pulse: 100 Respirations: 89 Pulse Ox (%): 89 Assessment & Plan Discharge Plan: Intermediate Plan to discharge in: Greater than 2 days Physician Review Additional Text: Physical exam: Patient intubated. Still with increased somnolence. Heart: Regular rate and rhythm Lungs: Clear to auscultation Abdomen: Binding in place. Abdomen very soft. Postsurgical changes noted. Extremities: No edema noted Impression: Septic Shock secondary to Cecal volvulus status post exploratory laparotomy with right hemicolectomy complicated with bacteremia Acute respiratory failure with possible pneumonia with history of COVID 19 pneumonia Acute on chronic renal disease: DM Type 2 Dementia Plan: Septic Shock secondary to Cecal volvulus status post exploratory laparotomy with right hemicolectomy complicated with bacteremia: Pulmonology plans to extubate today. Nurses report patient was extubated without difficulty. Currently on 2 L. Still with increased somnolence and pain. Continue to provide medication for pain. Nephrology adjusted medication of antibiotics. Renal function improved. Hemoglobin stable. Will continue monitor the patient closely. Surgery plans to initiate tube feeds. This will likely be initiated tomorrow. Updated family on progress. Continue monitor closely. Acute respiratory failure with possible pneumonia with history of COVID 19 pneumonia: Continue IV antibiotic therapy. Patient now extubated Acute on chronic renal disease: Renal function improved. Continue with Nephrology recommendations. DM Type 2: Accu-Cheks in place. Dementia: Patient with dementia. Time Spent Managing Pts Care (In Minutes): 55
[2020-07-18] MEDS: LATANOPROST 0.005% 2.5ML OPTH OPTH SCH (20:07)
[2020-07-19] MEDS: METRONIDAZOLE 500mg IVPB 500 MG/100 ML BAG IV SCH ×2 (00:04→04:55)
[2020-07-19] MEDS: INSULIN -REGULAR HUMAN 50 UNIT/0.5 ML ML SQ SCH ×4 (06:00→18:00)
[2020-07-19 06:06] LABS: Blood Gas Oxyhemoglobin 95.7 % (94-97); Blood O2 Saturation 98.1 % (92-98.5)
[2020-07-19] MEDS ORDERED: FUROSEMIDE 20 MG/ 2ML VIAL IV ONE ×2 (07:30→15:10)
--- NOTE | 2020-07-19 08:46 | RAD REPORT ---
EXAM DESCRIPTION: RAD - Chest Single View - 07/19/2020 5:17 am CLINICAL HISTORY: covid Chest pain. COMPARISON: Chest Single View dated 07/16/2020; Chest Single View dated 07/16/2020; Chest Single View dated 07/15/2020; Chest Single View dated 04/25/2020 FINDINGS: Portable technique limits examination quality. Since 07/16/2020, moderate worsening in bilateral pulmonary opacities noted. Small to moderate bilate ral pleural effusions. The heart is normal in size. Enteric tube coils in the stomach. IMPRESSION: Moderate worsening lung aeration since comparative study.
[2020-07-19] MEDS: BRIMONIDINE TARTRATE 0.15% 5 ML OPTH SCH ×2 (09:00→20:19)
[2020-07-19] MEDS ORDERED: Meropenem 1000 MG/VIAL IV SCH (09:00)
[2020-07-19 09:07] LABS: Absolute Lymphocytes (CBC) 0.6 K/uL (0.7-4.9); Basophils % 0.3 % (0-1.3); Hematocrit 29.6 % (36.0-45.0); RBC Red Blood Cell Count 3.44 M/uL (3.86-4.86)
[2020-07-19] MEDS: THIAMINE 200 MG/2 ML INJ IVP SCH (09:13)
[2020-07-19] MEDS: FAMOTIDINE 20 MG/2 ML VIAL IV SCH (09:14)
[2020-07-19] MEDS: FOLIC ACID 1 MG in NA CHLORIDE 0.9% 50 ML IV SCH (09:14)
[2020-07-19] MEDS: Meropenem 1,000 MG in NA CHLORIDE 0.9% 100 ML IV SCH ×2 (09:14→20:19)
[2020-07-19 09:32] LABS: Albumin 1.5 g/dL (3.4-5.0); Ferritin 421.3 ng/mL (8-388); Phosphorus 2.2 mg/dL (2.5-4.9)
[2020-07-19 09:38] LABS: Magnesium 2.8 mg/dL (1.8-2.4); Potassium 4.2 mmol/L (3.5-5.1)
[2020-07-19] MEDS: FENTANYL CITR 100 MCG/2 ML IV PRN ×3 (09:39→17:58)
[2020-07-19 12:51] LABS: Blood Morphology Comment NOT SEEN (NOT SEEN); Platelet Estimate DECR
--- NOTE | 2020-07-19 14:05 | PN ---
Date of Progress Note: 07/19/2020 Subjective: The patient was admitted with COVID pneumonia, respiratory failure, acute kidney injury. The patient's kidney function has been improved, nonoliguric. The patient had significant anasarca. Physical Examination: Vital Signs: Blood pressure of 98/41, pulse of 94. The patient had good urine output of 1200, positive of 1 L. Chest: Crackles bilateral. Heart: S1, S2. Regular. Abdomen: Soft, nontender. Extremities: +3 edema. Neuro: Awake. Laboratory Data: WBC 7.8, H and H 9.9/29.6. Sodium 148, potassium 4.2, bicarb 32, BUN 26, creatinine 0.6, calcium 7.4, phosphorus 2.2, magnesium 2.8, albumin 1.5. Corrected calcium is 9.4. Current Medications: Include meropenem 1 g b.i.d., folic acid, Pepcid, fentanyl. Assessment And Plan: 1. Acute kidney injury secondary to COVID nephropathy, recovered, resolved. 2. Acidosis secondary to renal failure, lactic acidosis, poor perfusion, status post discontinued bicarb drip for the last 24 hours. Continue to monitor. Keep holding bicarb drip. 3. Marginal hypernatremia. The patient is going to be diuresed. We will monitor and we will establish hopefully negative sodium balance. I am going to send for urine electrolytes. 4. Anasarca, possible secondary to malnourish. I am going to repeat PC ratio and start the patient on diuresis. We will send for TSH and we will monitor. 5. COVID pneumonia as by Pulmonary and ID. time spend exam the patient face to face , discussing with patient , reviewing la and radiology date, placing order , discussing the case with staff and with other team consultan and hospitalist 45 min. MELLY Voice ID: [id number] Report ID: [id number] GABINO
--- NOTE | 2020-07-19 14:13 | P.PN ---
Subjective Date of Service: 07/19/20 Primary Care Provider: unknown Chief Complaint: respiratory failure Subjective: Other (Patient currently on 2 L per nasal cannula. Patient more awake today. Edema to the lower extremities and upper extremities noted) Physical Examination - Vital Signs Temperature: 97.7 F Blood Pressure: 114/58 Pulse: 97 Respirations: 28 Pulse Ox (%): 100 Assessment & Plan Discharge Plan: [facility] Living Plan to discharge in: Greater than 2 days Physician Review Additional Text: Physical exam: Patient more alert today. Patient was extubated yesterday. On 3 L per nasal cannula. Less somnolence noted. Positive fluid balance over the past several days Heart: Regular rate and rhythm Lungs: Crackles to the bases Abdomen: Binding in place. Abdomen very soft. Postsurgical changes noted. 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 Crackles noted. Suspect underlying CHF. Will give IV Lasix. Case discussed with pulmonology who agrees and will increase Lasix. Order echo to evaluate further. We will continue to monitor closely. Surgery plans to start tube feeds. Will monitor renal function closely. Will discuss with pulmonology. Patient with positive sputum culture o f PseudomonasESBL. Currently on IV meropenem. Will need at least 7 to 14 days of medication. We will continue to monitor closely. Anticipate improvement. Likely return back to care home within the next 3 to 5 days. Acute respiratory failure with suspected acute on chronic CHF with history of Covid pneumonia: Patient will receive IV Lasix. Will monitor intake. Wean off oxygen. Encourage incentive spirometer. Will order echo to evaluate further Acute on chronic renal disease: Continue with nephrology recommendations as above. DM Type 2: Accu-Cheks in place. Dementia: Patient with dementia. Time Spent Managing Pts Care (In Minutes): 55
--- NOTE | 2020-07-19 14:29 | RAD REPORT ---
EXAM DESCRIPTION: RAD - Chest Single View - 07/19/2020 2:24 pm CLINICAL HISTORY: Device placement PICC line placement IMPRESSION: PICC line with its tip in the distal superior vena cava
[2020-07-19 17:58] VITALS: O2SAT 97
[2020-07-19] MEDS ORDERED: POTASSIUM PHOS IN 0.9 % NACL 15 MMOL/250 ML BAG IV ONE ×2 (19:49→20:35)
[2020-07-19] MEDS: LATANOPROST 0.005% 2.5ML OPTH OPTH SCH (20:35)
[2020-07-19 21:03] VITALS: BP 61/40; TEMP 100.9
--- NOTE | 2020-07-20 | P.DS ---
Admission Date: 07/15/20 Discharge Date: 07/20/20 Primary Care Provider: unknown Disposition: Reason for Admission: respiratory failure Consultations: Pulmonology/critical care: Dr. Montes General surgery: Dr. Mcclendon Nephrology:Dr. Lopez Procedures: EXAM DESCRIPTION: ADDENDUM #1 THIS REPORT CONTAINS FINDINGS THAT MAY BE CRITICAL TO PATIENT CARE: The findings were verbally discussed via telephone conference with Dr. Jason Conte on 07/15/2020 2:04 AM CDT. The results were acknowledged and understood. Electronically signed by: Jaguar Waldron MD 07/15/2020 2:04 AM CDT End of Addendum EXAM DESCRIPTION: CT ABDOMEN PELVIS WITHOUT IV CONTRAST CLINICAL HISTORY: Abd pain; Nausea / vomiting TECHNIQUE: Contiguous axial images obtained through the abdomen and pelvis without IV contrast. Coronal and sagittal reformatted images were provided. This exam was performed according to our departmental dose-optimization program, which includes automated exposure control, adjustment of the mA and/or kV according to patient size and/or use of iterative reconstruction technique. COMPARISON: None available for comparison. FINDINGS: Lung bases: Small right pleural effusion. Scattered bilateral subsegmental atelectasis/pleural parenchymal scar. Coronary artery calcification. Small to moderate hiatal hernia. Liver: Grossly unremarkable Gallbladder and biliary system: Prior cholecystectomy. Pancreas: Severe pancreatic parenchymal atrophy. Spleen: Grossly unremarkable Adrenals: Bilateral adrenal nodularity. Kidneys: 1.8 cm cortical cyst at the medial upper pole on the right. 3.1 cm lesion with cortical and exophytic components at the lateral lower pole on the left. There is a soft tissue component along its lateral aspect. 0.8 cm exo phytic lesion with coarse calcifications at the upper pole on the left. No calculi. No hydronephrosis. Bowel: Multiple dilated small bowel loops with air-fluid levels extending to the ileocecal valve. The cecum is moderately to severely distended, located within the mid abdomen measuring up to 12.5 cm in diameter. Twisting of the mesentery just distal to the cecum. Adjacent mesenteric edema. The remainder of the large bowel is decompressed. Colonic diverticula without adjacent inflammatory change. Appendix: The appendix is not definitively visualized. No findings to suggest acute appendicitis. Urinary bladder: The urinary bladder is decompressed. Reproductive: Unremarkable as visualized Lymph nodes: No pathologically enlarged lymph nodes. Peritoneum: No focal fluid collection. No free air. Vessels: Mild to moderate atherosclerotic disease. No abdominal aortic aneurysm. Abdominal wall: Small to moderate fat-containing umbilical hernia. Bones: Multilevel spondylosis. Multiple remote right-sided rib fractures. Fusion at L4-L5. Remote right hip gamma nail fixation. IMPRESSION: 1. Findings compatible with cecal volvulus and associated small bowel obstruction. Surgical consult is recommended. 2. Indeterminant 3.1 cm left renal lesion. Renal cell carcinoma is not excluded. 3. Other findings as above. EXAM DESCRIPTION: RAD - Chest Single View - 07/15/2020 8:56 am CLINICAL HISTORY: TUBE PLACEMENT Chest pain. COMPARISON: Chest Single View dated 07/14/2020; Chest Single View dated 07/09/2020; Chest Single View dated 07/05/2020; Chest Single View dated 06/28/2020hest Single View dated 04/25/2020; Chest Single View dated 04/17/2020; Chest Single View dated 05/23/2019; CHEST SINGLE VIEW dated 08/31/2013 FINDINGS: Portable technique limits examination quality. ET tube has been placed. Tip of the ET tube appears to be at the level of the inferior aspect of the aortic arch about 1 cm proximal to the yelena. Enteric tube coils in stomach. 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 Patient was taken to the operating room for ex lap with repair of cecal volvulus, procedure was tolerated well and patient was transferred to the intensive care unit for further monitoring. Patient was extubated in the following days and kept on broad-spectrum antibiotics. Patient is weaned off of vasopressor therapy, today patient began to have some difficulty breathing, family at bedside confirmed patient wishes are for DNR/DNI, throughout the day patient began having periods of agonal breathing, h ypotension/tachycardia this was discussed with attending hospitalist who discuss further with family and they wish to proceed with comfort measures. This evening around 9:00 p.m. patient had more agonal breathing and passed peacefully at 9:09 p.m. with her family at her side. Vital Signs/Physical Exam: Temp Pulse Resp BP Pulse Ox 100.9 F 139 H 27 H 61/40 L 79 L 07/19/20 20:00 07/19/20 20:00 07/19/20 20:00 07/19/20 20:00 07/19/20 20:00 General: Unresponsive HEENT: Other (Pupils fixed, dilated) Neck: Other (No palpable pulses) Respiratory: Other (No spontaneous respiratory effort) Cardiovascular: Other (No heart sounds noted) Laboratory Data at Discharge: WBC 7.80 K/uL (4.3-10.9) D 07/19/20 08:53 Hgb 9.9 g/dL (12.0-15.0) L 07/19/20 08:53 Hct 29.6 % (36.0-45.0) L 07/19/20 08:53 Plt Count 125 K/uL (152-406) L D 07/19/20 08:53 PT 14.8 SECONDS (9.5-12.5) H 07/15/20 03:10 INR 1.28 07/15/20 03:10 APTT 24.8 SECONDS (24.3-36.9) 07/15/20 03:10 Sodium 148 mmol/L (136-145) H 07/19/20 08:53 Potassium 4.2 mmol/L (3.5-5.1) 07/19/20 08:53 BUN 26 mg/dL (7-18) H 07/19/20 08:53 Creatinine 0.67 mg/dL (0.55-1.3) 07/19/20 08:53 Glucose 193 mg/dL (74-106) H 07/19/20 08:53 Phosphorus 2.2 mg/dL (2.5-4.9) L D 07/19/20 08:53 Magnesium 2.8 mg/dL (1.8-2.4) H 07/19/20 08:53 Total Bilirubin 0.6 mg/dL (0.2-1.0) 07/16/20 04:11 AST 25 U/L (15-37) 07/16/20 04:11 ALT 13 U/L (12-78) 07/16/20 04:11 Alkaline Phosphatase 58 U/L (45-117) 07/16/20 04:11 Lipase 62 U/L (73-393) L 07/15/20 00:40 Home Medications: Brimonidine Tartrate 1 drop OU Q12H 01/05/13 Latanoprost Ophth [Xalatan 0.005%*] 1 drop OP BEDTIME 01/05/13 Quetiapine [Seroquel*] 25 mg PO DAILY 08/30/13 Quetiapine [Seroquel*] 100 mg PO BEDTIME 08/30/13 Mag Hydroxide 8% [Milk Of Magnesia*] 400 mg PO BID MDD 2400mg 09/03/17 Mirtazapine [Remeron*] 1 tab PO 30 MIN BEFORE HS 09/03/17 Folic Acid 1 tab PO DAILY 04/26/20 Insulin Glargine,Hum.rec.anlog [Lantus Solostar] 35 unit SQ DAILY 04/26/20 Quetiapine [Seroquel*] 25 mg PO Q4H 04/26/20 Physician Discharge Instructions: May she rest in peace Followup: NONE,NONE [Primary Care Provider] - Time spent managing pt's care (in minutes): 30
[2020-07-20] MEDS ORDERED: FUROSEMIDE 40 MG/4 ML VIAL IV SCH (09:00)
== END 2020-07-19 23:32 | disposition expired | DRG 853 ==
LOC: ER 23:51 → DS 07-15 06:57 → 3RD-ICU 07-15 07:40
PROVIDERS: ADMIT Surgery; ATTEND Surgery
PROC: 3E0336Z Introduction of Nutritional Substance into Peripheral Vein, Percutaneous Approach (ICD-10-PCS; 2020-07-15)
PROC: 0DTF0ZZ Resection of Right Large Intestine, Open Approach (ICD-10-PCS; principal; 2020-07-15 04:00)
PROC: 5A1945Z Respiratory Ventilation, 24-96 Consecutive Hours (ICD-10-PCS; 2020-07-19)
PROC: 0BH17EZ Insertion of Endotracheal Airway into Trachea, Via Natural or Artificial Opening (ICD-10-PCS; 2020-07-19)
PROC: 02HV33Z Insertion of Infusion Device into Superior Vena Cava, Percutaneous Approach (ICD-10-PCS; 2020-07-19)
DX: A41.52 Sepsis due to Pseudomonas (principal); K56.2 Volvulus; R65.21 Severe sepsis with septic shock; U07.1 COVID-19; J96.00 Acute respiratory failure, unspecified whether with hypoxia or hypercapnia; N17.0 Acute kidney failure with tubular necrosis; J12.82 Pneumonia due to coronavirus disease 2019; E87.2 Acidosis; E87.0 Hyperosmolality and hypernatremia; Z16.12 Extended spectrum beta lactamase (ESBL) resistance; G30.9 Alzheimer's disease, unspecified; F02.80 Dementia in other diseases classified elsewhere, unspecified severity, without behavioral disturbance, psychotic disturbance, mood disturbance, and anxiety; E11.649 Type 2 diabetes mellitus with hypoglycemia without coma; E11.69 Type 2 diabetes mellitus with other specified complication; K52.9 Noninfective gastroenteritis and colitis, unspecified; E83.39 Other disorders of phosphorus metabolism; E87.6 Hypokalemia; E83.51 Hypocalcemia; I50.9 Heart failure, unspecified; L89.159 Pressure ulcer of sacral region, unspecified stage; Z79.4 Long term (current) use of insulin; Z90.49 Acquired absence of other specified parts of digestive tract; Z79.899 Other long term (current) drug therapy; Z66 Do not resuscitate; Z96.653 Presence of artificial knee joint, bilateral; Z79.01 Long term (current) use of anticoagulants; Z78.1 Physical restraint status
CPT/HCPCS: 36415; 36569; 71045; 74176; 80048; 80053; 80069; 80076; 81003; 81015; 82565; 82728; 82805; 82947; 83605; 83690; 83735; 84100; 84132; 84145; 85025; 85610; 85730; 86140; 86850; 86900; 86901; 87040; 87070; 87077; 87086; 87088; 87186; 87205; 88307; 93005; 94002; 94003; 96361; 96365; 96375; 99285; J0610; J0696; J1100; J1630; J1720; J1940; J2185; J2250; J2270; J2370; J2405; J2710; J3010; J3411; J3480; J7030; J7040; J7042; J7060; J7120; P9045; P9047; U0003